=== PATIENT | female | born 1985 | race Hispanic/Latino ===

== ENCOUNTER 2018-08-09 13:44 | Emergency (ER) | payer OTHER ==
[2018-08-09 13:47] VITALS: BMI 33.9
[2018-08-09] MEDS ORDERED: Sodium Chloride 0.9% 1,000 ML IV ONE (13:56)
--- NOTE | 2018-08-09 14:08 | ED PDOC ---
Arrival/HPI - General Chief Complaint: Dizziness/Lightheaded Time Seen by Provider: 08/09/18 13:48 Historian: Patient - History of Present Illness Narrative History of Present Illness (Text): 08/09/18 13:56 A 32 year old female, with no significant past medical history, presents to the emergency department with a complaint of sore throat, right ear ache, diarrhea, and fatigue. Patient notes that she has not been feeling well since yesterday. 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 Patient states that she went to Dr. Leung's office this afternoon and had another near- syncopal episode in the office. She states that she was hyptoensive in the office and was transferred to the emergency department. Patient notes that her LNP was 2 months ago. She takes oral contraceptive pills and missed one. She states she does not think she is . The patient denies fevers, chills, headache, dizziness, chest pain, shortness of breath, dyspnea on exertion, cough, abdominal pain, nausea, vomiting, back pain, neck pain, urinary/bowel changes, or any other complaint. PMD: Dr. Leung Time/Duration: Other (Yesterday) Symptom Onset: Sudden Symptom Course: Unchanged Activities at Onset: Rest, Light Context: Home Past Medical History - Provider Review Nursing Documentation Reviewed: Yes - Infectious Disease Hx of Infectious Diseases: None - Gastrointestinal Other/Comment: Bariatric surgery - Psychiatric Hx Substance Use: No - Surgical History Other/Comment: gastric sleeve - Anesthesia Hx Anesthesia: Yes Hx Anesthesia Reactions: No Family/Social History - Physician Review Nursing Documentation Reviewed: Yes Family/Social History: No Known Family HX Smoking Status: Never Smoked Hx Alcohol Use: Yes Frequency of alcohol use: Socially Hx Substance Use: No Allergies/Home Meds Allergies/Adverse Reactions: Allergies shellfish derived Allergy (Verified 08/09/18 13:47) RASH Review of Systems - Physician Review All systems were reviewed & negative as marked: Yes - Review of Systems Constitutional: Fatigue. absent: Fevers ENT: Other (Right ear ache.) Respiratory: absent: SOB, Cough Cardiovascular: Syncope (2 near- syncopal episodes). absent: Chest Pain, MERLOS Gastrointestinal: Diarrhea. absent: Abdominal Pain, Stool Changes, Nausea, Vomiting Genitourinary Female: absent: Urine Output Changes Musculoskeletal: absent: Back Pain, Neck Pain Neurological: absent: Headache, Dizziness Physical Exam Appearance: Positive for: Well-Appearing, Non-Toxic, Comfortable Pain Distress: None Mental Status: Positive for: Alert and Oriented X 3 - Systems Exam Head: Present: Atraumatic, Normocephalic Pupils: Present: PERRL Extroacular Muscles: Present: EOMI Conjunctiva: Present: Normal Mouth: Present: Moist Mucous Membranes Neck: Present: Normal Range of Motion Respiratory/Chest: Present: Clear to Auscultation, Good Air Exchange. No: Respiratory Distress, Accessory Muscle Use Cardiovascular: Present: Regular Rate and Rhythm, Normal S1, S2. No: Murmurs Abdomen: No: Tenderness, Distention, Peritoneal Signs Back: Present: Normal Inspection Upper Extremity: Present: Normal Inspection. No: Cyanosis, Edema Lower Extremity: Present: Normal Inspection. No: Edema Neurological: Present: GCS=15, CN II-XII Intact, Speech Normal Skin: Present: Warm, Dry, Normal Color. No: Rashes Psychiatric: Present: Alert, Oriented x 3, Normal Insight, Normal Concentration Medical Decision Making ED Course and Treatment: 08/09/18 14:09 Impression: A 32 year old female presents to the emergency department with a complaint of sore throat, right ear ache, diarrhea, weakness, and fatigue since yesterday. Plan: -- EKG -- Chest X-ray -- Labs -- IV Fluids -- Reassess and disposition Prior Visits: Notes and results from previous visits were reviewed. Progress Notes: 08/09/18 15:56 EKG shows normal sinus rhythm rate approximately [address] or T-wave changes. 08/09/18 16:07 symptoms markedly improved post IV fluids. She does not feel dizzy or lightheaded or near syncopal. Workup is unremarkable other than her leukocytosis. Discharge home accompanied by father. Follow-up with PMD. Follow up in ER as needed. Symptomatic treatment. Increase fluids. - Lab Interpretations I have reviewed the lab results: Yes - EKG Interpretation Interpreted by ED Physician: Yes Type: 12 lead EKG - Scribe Statement The provider has reviewed the documentation as recorded by the Scribe Rita Orosco Provider Scribe Attestation: All medical record entries made by the Scribe were at my direction and personally dictated by me. I have reviewed the chart and agree that the record accurately reflects my personal performance of the history, physical exam, medical decision making, and the department course for this patient. I have also personally directed, reviewed, and agree with the discharge instructions and disposition. Disposition/Present on Arrival - Present on Arrival Any Indicators Present on Arrival: No History of DVT/PE: No History of Uncontrolled Diabetes: No Urinary Catheter: No History of Decub. Ulcer: No History Surgical Site Infection Following: None - Disposition Have Diagnosis and Disposition been Completed?: Yes Diagnosis: Near syncope, Leukocytosis, Hypotension, Pharyngitis Disposition: HOME/ ROUTINE Disposition Time: 16:10 Patient Plan: Discharge Condition: IMPROVED Discharge Instructions (ExitCare): Viral Pharyngitis, Sore Throat, Adult (DC), Syncope (Fainting) Additional Instructions: increase fluids. Symptomatic treatment. Tylenol or Advil as directed on bottle as needed. Follow-up with PMD. Follow up in ER as needed. Referrals: Javier Leung MD [Primary Care Provider] - Follow up with primary Forms: [facility] ([place]), WORK NOTE
[2018-08-09 14:10] VITALS: RESP 18; TEMP 98.2
[2018-08-09 14:32] LABS: BASO # 0.02 K/mm3 (0.0-2.0); BASO % 0.1 % (0.0-3.0); EOS % 0.1 % (1.5-5.0); GRAN # 15.88 (1.4-6.5); GRAN % 89.1 % (50.0-68.0); HEMOGLOBIN 13.2 g/dL (12.0-16.0); LYMPH # 1.1 (1.2-3.4); LYMPH % 6.2 % (22.0-35.0); MEAN CELL VOLUME 83.3 fl (80.0-105.0); MEAN CORPUSCULAR HGB CONC 33.6 g/dl (31.0-37.0); MEAN PLATELET VOLUME 9.1 fl (7.0-11.0); MONO # 0.8 (0.1-0.6); MONO % 4.5 % (1.0-6.0); RBC 4.72 10^6/uL (3.5-6.1); RED CELL DISTRIBUTION WIDTH 14.2 % (11.5-14.5); WHITE BLOOD COUNT 17.8 10^3/uL (4.5-11.0)
[2018-08-09 14:41] LABS: ALB/GLOB RATIO 1.1 (1.1-1.8); ALBUMIN 4.5 g/dL (3.0-4.8); ALT/SGPT 20 U/L (7-56); AST/SGOT 18 U/L (14-36); BLOOD UREA NITROGEN 10 mg/dL (7-21); CALCIUM 9.4 mg/dL (8.4-10.5); GFR NON-AFRICAN AMERICAN > 60
[2018-08-09 14:53] LABS: TROPONIN I < 0.01 ng/mL
[2018-08-09 15:39] VITALS: PULSE 93
[2018-08-09 16:28] VITALS: BP 128/78; O2SAT 98
--- NOTE | 2018-08-10 09:05 | CARD ---
APPROVED REPORT Date of service: 08/09/2018 EKG Measurement Heart [id number] <Conclusion> Normal sinus rhythm Low voltage lateral leads, posible lead placement
== END 2018-08-09 16:27 | disposition home or self-care (01) ==
LOC: ED 13:44
DX: R55 Syncope and collapse (principal); D72.829 Elevated white blood cell count, unspecified; J02.9 Acute pharyngitis, unspecified; I95.9 Hypotension, unspecified
CPT/HCPCS: 80053; 82550; 83615; 83735; 84484; 85025; 86710; 87070; 87430; 87804; 93005; 96360; 96361; 99285; J7040

== ENCOUNTER 2018-10-09 22:10 | Inpatient (IN) | payer OTHER ==
[2018-10-09] MEDS ORDERED: Morphine 4 mg/ml ISec IVP STA (23:08)
--- NOTE | 2018-10-09 23:10 | ED PDOC ---
Arrival/HPI - General Time Seen by Provider: 10/09/18 22:34 Historian: Patient - History of Present Illness Narrative History of Present Illness (Text): 10/09/18 23:06 32 year old female, whose past medical history includes bariatric surgery 3 years ago, presents to the emergency department with abdominal pain and vomiting, since tonight. Patient states she has been having sharp abdominal pain tonight. Patient state pain was so strong at one point, it made her collapse to the ground. Patient states pain moves around her entire abdomen. Patient states she has also been having some associated lightheadedness and chills. Patient denies any fevers, chest pain, shortness of breath, cough, back pain, neck pain, or any other complaint. Time/Duration: 4-6 hours Symptom Onset: Gradual Symptom Course: Unchanged Quality: Stabbing Activities at Onset: Light Context: Home Past Medical History - Provider Review Nursing Documentation Reviewed: Yes - Infectious Disease Hx of Infectious Diseases: None - Gastrointestinal Other/Comment: Bariatric surgery - Psychiatric Hx Substance Use: No - Surgical History Other/Comment: gastric sleeve - Anesthesia Hx Anesthesia: Yes Hx Anesthesia Reactions: No Family/Social History - Physician Review Nursing Documentation Reviewed: Yes Family/Social History: No Known Family HX Smoking Status: Never Smoked Hx Alcohol Use: Yes Hx Substance Use: No Allergies/Home Meds Allergies/Adverse Reactions: Allergies shellfish derived Allergy (Verified 10/09/18 23:32) RASH Home Medications: Home Meds Medication Instructions Recorded Confirmed Norethindrone-E.estradiol-Iron [Lo 1 tab PO DAILY 10/09/18 10/09/18 Loestrin Fe 1-10 Tablet] Sertraline [Zoloft] 25 mg PO HS 10/09/18 10/09/18 Review of Systems - Physician Review All systems were reviewed & negative as marked: Yes - Review of Systems Constitutional: absent: Fevers Respiratory: absent: SOB, Cough Cardiovascular: absent: Chest Pain Gastrointestinal: Abdominal Pain, Nausea, Vomiting Musculoskeletal: absent: Back Pain, Neck Pain Physical Exam - Physical Exam Narrative Physical Exam (Text): 10/09/18 23:16 Gen: VS reviewed, alert, well developed, well nourished, nontoxic, mild distress secondary to pain. ENT: normal pharynx. Eye: EOMI, PERRL. Neck: no JVD, supple, no adenopathy. CV: regular rate, regular rhythm, no rubs, no murmur, no gallops, S1, S2, pulses equal and strong. Pulm: no distress, clear to auscultation, no wheeze, no rhonchi, breath sounds equal, no rales. Abd: soft, mild to moderate epigastric tenderness with guarding, no rebound, no rigidity, normal bowel sounds. Ext: no edema. Skin: good color, no rash, no cyanosis. Psych: responds appropriately to questions, normal affect. Neuro: oriented x 3, CN2-12 intact grossly, motor intact, sensation intact. Vital Signs Reviewed: Yes Vital Signs Temp Pulse Resp BP Pulse Ox 10/09/18 22:36 97.5 F L 82 18 121/69 98 Temperature: Afebrile Blood Pressure: Normal Pulse: Regular Respiratory Rate: Normal Appearance: Positive for: Well-Appearing, Non-Toxic, Comfortable Pain Distress: None Mental Status: Positive for: Alert and Oriented X 3 Medical Decision Making ED Course and Treatment: 10/09/18 23:19 Impression: 32 year old female presents with vomiting and abdominal pain Plan: -- EKG -- CMP, Lipase, Trop -- CBC, Platelets -- Morphine, Zofran -- POC -- Reassess and disposition Prior Visits: Notes and results from previous visits were reviewed. Progress Notes: 10/10/18 01:03 patient comfortable at this time, awaiting US 10/10/18 03:[address] allison. patient to be admitted for gallstones and moderate leukocytosis. it is very likely that the patient will have a recurrence of severe pain especially since there are multiple gallstones seen on US. furthermore, with the mild transminitis, there is a concern for passed biliary duct stones. consult to gen surg as per dr. allison. patient has seen and examined by the surgical assist. 10/10/18 03:28 - RAD Interpretation Narrative RAD Interpretations (Text): 10/10/18 03:20 Ultrasound of the gallbladder Indication: Abdominal pain. Technique: Real-time ultrasound images were obtained. Findings: Enlarged liver measuring 18.1 cm. Increased hepatic echogenicity suggestive of hepatic steatosis. Multiple gallstones are noted with few of them at the level of the neck of the gallbladder. Normal gallbladder with thickness measuring 1.4 mm. Nondilated common bile duct measuring 6 mm. Unremarkable pancreas. Unremarkable IVC. Unremarkable right kidney. Impression: Cholelithiasis Twisting Frame Changer: Radiologist - EKG Interpretation EKG Interpretation (Text): 10/10/18 00:06 ekg my read" nsr at 70 bpm, nml qrs, nml axis, no acute sttw abn Interpreted by ED Physician: Yes - Scribe Statement The provider has reviewed the documentation as recorded by the Elvira Will Provider Scribe Attestation: All medical record entries made by the Christianibe were at my direction and pe rsonally dictated by me. I have reviewed the chart and agree that the record accurately reflects my personal performance of the history, physical exam, medical decision making, and the department course for this patient. I have also personally directed, reviewed, and agree with the discharge instructions and disposition. Disposition/Present on Arrival - Present on Arrival Any Indicators Present on Arrival: No History of DVT/PE: No History of Uncontrolled Diabetes: No Urinary Catheter: No History Surgical Site Infection Following: None - Disposition Have Diagnosis and Disposition been Completed?: Yes Diagnosis: Gallstones, Leukocytosis Disposition: HOSPITALIZED Disposition Time: 03:26 Patient Plan: Admission Patient Problems: Current Active Problems Problem Status Onset Gallstones Acute Leukocytosis Acute Condition: STABLE
[2018-10-09] MEDS ORDERED: Sodium Chloride 0.9% 1,000 ML IV SCH (23:15)
[2018-10-10 00:03] LABS: ALB/GLOB RATIO 1.1 (1.1-1.8); ALBUMIN 4.3 g/dL (3.0-4.8); ALT/SGPT 33 U/L (7-56); AST/SGOT 87 U/L (14-36); BLOOD UREA NITROGEN 14 mg/dL (7-21); CALCIUM 9.2 mg/dL (8.4-10.5); GFR NON-AFRICAN AMERICAN > 60; LIPASE 191 U/L (23-300)
[2018-10-10 00:13] LABS: BASO # 0.04 {null, K/mm3} (0.0-2.0); BASO % 0.3 % (0.0-3.0); EOS # 0.2 (0.0-0.7); EOS % 0.9 % (1.5-5.0); HEMOGLOBIN 13.2 g/dL (12.0-16.0); LYMPH # 3.1 (1.2-3.4); LYMPH % 19.6 % (22.0-35.0); MEAN CELL VOLUME 83.9 fl (80.0-105.0); MEAN CORPUSCULAR HEMOGLOBIN 27.7 pg (25.0-35.0); MEAN PLATELET VOLUME 9.6 fl (7.0-11.0); MONO # 0.7 (0.1-0.6); MONO % 4.5 % (1.0-6.0); RBC 4.77 {null, 10^6/uL} (3.5-6.1); RED CELL DISTRIBUTION WIDTH 14.1 % (11.5-14.5)
[2018-10-10 00:14] LABS: TROPONIN I < 0.01 ng/mL
[2018-10-10 00:16] LABS: INR 1.02; PARTIAL THROMBOPLASTIN TIME 32.7 Seconds (26.9-38.3); PROTHROMBIN TIME 11.3 SECONDS (9.4-12.5)
[2018-10-10] MEDS ORDERED: Dextrose 5%/0.45% NS 1,000 ML IV SCH (03:30)
[2018-10-10] MEDS ORDERED: Morphine 2 mg/ml ISec IVP STA (05:30)
[2018-10-10 05:39] VITALS: BMI 37.1
--- NOTE | 2018-10-10 07:48 | CP.PCM.HP ---
<José Manuel Cantrell - Last Filed: 10/10/18 10:07> History of Present Illness - History of Present Illness History of Present Illness: H&P for Dr Rodriguez: 32-year-old female with past medical history of sleeve bariatric surgery 3-4 years ago, GERD, and depression presents to the ED with abdominal pain. Patient states that at 10 PM last night she had a sudden onset abdominal pain that was 10/10 in severity and was severe enough that she fell from the pain. Patient denies hitting her head or any neck pain. Patient states that she also had nausea and an episode of nonbilious nonbloody vomiting. Patient states that the pain was in the epigastric region and radiated to her chest area. She denies this occurring before. She denies any other symptoms. Denies any fever, chills, shortness of breath, chest pain, palpitations, urinary symptoms or diarrhea. 12 point ROS performed and negative other than stated above PMH: As above PSH: Bariatric surgery 3-4 years ago Medications: Refer to [facility] Allergies: Shellfish Social history: Patient denies any smoking, alcohol use, recreational drug use Family history: Noncontributory Present on Admission - Present on Admission Any Indicators Present on Admission: No Review of Systems - Review of Systems All systems: reviewed and no additional remarkable complaints except Past Patient History - Infectious Disease Hx of Infectious Diseases: None - Past Social History Smoking Status: Never Smoked - CARDIAC Hx Cardiac Disorders: Yes (hypotension) - PULMONARY Hx Respiratory Disorders: Yes Hx Asthma: Yes Hx Pneumonia: Yes - NEUROLOGICAL Hx Neurological Disorder: Yes Hx Migraine: Yes - HEENT Hx HEENT Problems: No - RENAL Hx Chronic Kidney Disease: No - ENDOCRINE/METABOLIC Hx Endocrine Disorders: No - HEMATOLOGICAL/ONCOLOGICAL Hx Blood Disorders: Yes Hx Shingles: Yes (2013 arms) - INTEGUMENTARY Hx Dermatological Problems: Yes Hx Eczema: Yes - MUSCULOSKELETAL/RHEUMATOLOGICAL Hx Falls: No - GASTROINTESTINAL Hx Gastrointestinal Disorders: No - GENITOURINARY/GYNECOLOGICAL Hx Genitourinary Disorders: No - PSYCHIATRIC Hx Substance Use: No - SURGICAL HISTORY Hx Surgeries: Yes (gastric sleeve) - ANESTHESIA Hx Anesthesia: Yes Hx Anesthesia Reactions: No Meds Allergies/Adverse Reactions: Allergies Allergy/AdvReac Type Severity Reaction Status Date / Time shellfish derived Allergy RASH Verified 10/09/18 23:32 Physical Exam - Constitutional Appears: No Acute Distress - Head Exam Head Exam: ATRAUMATIC, NORMOCEPHALIC - Eye Exam Eye Exam: EOMI - ENT Exam ENT Exam: Mucous Membranes Moist - Respiratory Exam Respiratory Exam: Clear to Auscultation Bilateral. absent: Rales, Wheezes - Cardiovascular Exam Cardiovascular Exam: REGULAR RHYTHM, RRR, +S1, +S2 - GI/Abdominal Exam GI & Abdominal Exam: Normal Bowel Sounds, Soft, Tenderness (Tender in epigastric region, + murpheys ). absent: Distended, Guarding - Neurological Exam Neurological exam: Alert, CN II-XII Intact, Oriented x3 - Psychiatric Exam Psychiatric exam: Normal Mood - Skin Skin Exam: Dry, Warm Results - Vital Signs Recent Vital Signs: Last Vital Signs Temp 97.5 F L 10/09/18 22:36 Pulse 82 10/09/18 22:36 Resp 19 10/10/18 05:32 BP 121/69 10/09/18 22:36 Pulse Ox 98 10/09/18 22:36 - Labs Result Diagrams: 10/09/18 23:40 10/09/18 23:40 Labs: Laboratory Results - last 24 hr 10/09/18 10/09/18 10/09/18 23:40 23:40 23:40 WBC 16.0 H RBC 4.77 Hgb 13.2 Hct 40.0 MCV 83.9 MCH 27.7 MCHC 33.0 RDW 14.1 Plt Count 345 MPV 9.6 Neut % (Auto) 74.7 H Lymph % (Auto) 19.6 L [place] % (Auto) 4.5 Eos % (Auto) 0.9 L Baso % (Auto) 0.3 Lymph # (Auto) 3.1 [place] # (Auto) 0.7 H Eos # (Auto) 0.2 Baso # (Auto) 0.04 Absolute Neuts (auto) 11.95 H PT 11.3 INR 1.02 APTT 32.7 Sodium 139 Potassium 4.1 Chloride 106 Carbon Dioxide 26 Anion Gap 11 BUN 14 Creatinine 0.7 Est GFR ( Amer) > 60 Est GFR (Non-Af Amer) > 60 Random Glucose 121 H Calcium 9.2 Total Bilirubin 0.3 AST 87 H D ALT 33 Alkaline Phosphatase 121 Troponin I < 0.01 Total Protein 8.1 Albumin 4.3 Globulin 3.8 Albumin/Globulin Ratio 1.1 Lipase 191 Assessment & Plan - Assessment and Plan (Free Text) Assessment: 1. Abdominal pain likely secondary to cholelithiasis, with hx of bariatric surgery 2. Leukocytosis 3. GERD 4. Depression At this time patient states that her abdominal pain has mildly improved. S noah is consulted for their recommendations. Abdominal ultrasound is ordered preliminary reading cholelithiasis, will follow up official read. Gastroenterology was consulted awaiting recommendations - for a possible MRCP. For the patient's leukocytosis Rocephin was started. Continue with Protonix for her GERD, and continue with Lexapro for her depression. Pain control with morphine 2mg/4hr as needed. Follow-up septic workup. We will continue to monitor for any changes. Case and plan was reviewed and discussed with Dr. Rodriguez. <Walt Rodriguez S - Last Filed: 10/10/18 18:39> Results - Vital Signs Recent Vital Signs: Last Vital Signs Temp 101.3 F H 10/10/18 17:57 Pulse 65 10/10/18 17:57 Resp 19 10/10/18 17:57 BP 122/82 10/10/18 17:57 Pulse Ox 96 10/10/18 17:57 - Labs Result Diagrams: 10/09/18 23:40 10/09/18 23:40 Labs: Laboratory Results - last 24 hr 10/09/18 10/09/18 10/09/18 23:40 23:40 23:40 WBC 16.0 H RBC 4.77 Hgb 13.2 Hct 40.0 MCV 83.9 MCH 27.7 MCHC 33.0 RDW 14.1 Plt Count 345 MPV 9.6 Neut % (Auto) 74.7 H Lymph % (Auto) 19.6 L [place] % (Auto) 4.5 Eos % (Auto) 0.9 L Baso % (Auto) 0.3 Lymph # (Auto) 3.1 [place] # (Auto) 0.7 H Eos # (Auto) 0.2 Baso # (Auto) 0.04 Absolute Neuts (auto) 11.95 H PT 11.3 INR 1.02 APTT 32.7 Sodium 139 Potassium 4.1 Chloride 106 Carbon Dioxide 26 Anion Gap 11 BUN 14 Creatinine 0.7 Est GFR ( Amer) > 60 Est GFR (Non-Af Amer) > 60 Random Glucose 121 H Calcium 9.2 Total Bilirubin 0.3 AST 87 H D ALT 33 Alkaline Phosphatase 121 Troponin I < 0.01 Total Protein 8.1 Albumin 4.3 Globulin 3.8 Albumin/Globulin Ratio 1.1 Lipase 191 Assessment & Plan - Assessment and Plan (Free Text) Assessment: Pt seen and examined by me. I have reviewed the note of the medical coder and I agree with it. I have discussed the assessment and plan with the resident. I have reviewed the medications and the last labs. Pt with abd pain due to cholecystitis. She has been started on IV Rocephin. She will need surgical evaluation. Her pain is controlled with Morphine. She will need GI evaluation. She has depression and will be on her anti-depressant. She has a 16 month child at home and is eager to go home. Follow CBC.
--- NOTE | 2018-10-10 08:02 | CP.PCM.CON ---
History of Present Illness - History of Present Illness History of Present Illness: Surgery Consult Note for Dr. Hutchinson 32-year-old female with past medical history of sleeve bariatric surgery 3-4 years ago, GERD, and depression presents to the ED with abdominal pain. Pain started last night described as a 10/10, sudden onset and intense in nature that he it caused her to collapse. Admits to 1 episode of nonbilious vomiting and stated it looked like her food contents. Patient states the pain is located in the epigastric region and radiates to the back. Never had prior episodes of this before. Denies fevers, chills, chest pain, sob, n/v, constipation or diarrhea, and dysuria. PMH: Gerd, Depression PSH: Bariatric surgery 3-4 years ago Medications: Refer to [facility] Allergies: Shellfish Social history: Patient denies any smoking, alcohol use, recreational drug use Family history: Noncontributory Review of Systems - Review of Systems Review of Systems: 12 point ROS obtained and noted in HPI Past Patient History - Infectious Disease Hx of Infectious Diseases: None - Past Social History Smoking Status: Never Smoked - CARDIAC Hx Cardiac Disorders: Yes (hypotension) - PULMONARY Hx Respiratory Disorders: Yes Hx Asthma: Yes Hx Pneumonia: Yes - NEUROLOGICAL Hx Neurological Disorder: Yes Hx Migraine: Yes - HEENT Hx HEENT Problems: No - RENAL Hx Chronic Kidney Disease: No - ENDOCRINE/METABOLIC Hx Endocrine Disorders: No - HEMATOLOGICAL/ONCOLOGICAL Hx Blood Disorders: Yes Hx Shingles: Yes (2013 arms) - INTEGUMENTARY Hx Dermatological Problems: Yes Hx Eczema: Yes - MUSCULOSKELETAL/RHEUMATOLOGICAL Hx Falls: No - GASTROINTESTINAL Hx Gastrointestinal Disorders: No - GENITOURINARY/GYNECOLOGICAL Hx Genitourinary Disorders: No - PSYCHIATRIC Hx Substance Use: No - SURGICAL HISTORY Hx Surgeries: Yes (gastric sleeve) - ANESTHESIA Hx Anesthesia: Yes Hx Anesthesia Reactions: No Meds Allergies/Adverse Reactions: Allergies Allergy/AdvReac Type Severity Reaction Status Date / Time shellfish derived Allergy RASH Verified 10/09/18 23:32 - Medications Medications: Current Medications Dextrose/Sodium Chloride (Dextrose 5%/0.45% Ns 1000 Ml) 1,000 mls @ 150 mls/hr IV .[id number] [facility] Last Admin: 10/10/18 03:39 Dose: 150 mls/hr Pantoprazole Sodium (Protonix Ec Tab) 40 mg PO 0600 STACIE Sertraline HCl (Zoloft) 25 mg PO HS STACIE Results - Vital Signs Recent Vital Signs: Last Vital Signs Temp 97.5 F L 10/09/18 22:36 Pulse 82 10/09/18 22:36 Resp 19 10/10/18 05:32 BP 121/69 10/09/18 22:36 Pulse Ox 98 10/09/18 22:36 - Labs Result Diagrams: 10/09/18 23:40 10/09/18 23:40 Labs: Laboratory Results - last 24 hr 10/09/18 10/09/18 10/09/18 23:40 23:40 23:40 WBC 16.0 H RBC 4.77 Hgb 13.2 Hct 40.0 MCV 83.9 MCH 27.7 MCHC 33.0 RDW 14.1 Plt Count 345 MPV 9.6 Neut % (Auto) 74.7 H Lymph % (Auto) 19.6 L [place] % (Auto) 4.5 Eos % (Auto) 0.9 L Baso % (Auto) 0.3 Lymph # (Auto) 3.1 [place] # (Auto) 0.7 H Eos # (Auto) 0.2 Baso # (Auto) 0.04 Absolute Neuts (auto) 11.95 H PT 11.3 INR 1.02 APTT 32.7 Sodium 139 Potassium 4.1 Chloride 106 Carbon Dioxide 26 Anion Gap 11 BUN 14 Creatinine 0.7 Est GFR ( Amer) > 60 Est GFR (Non-Af Amer) > 60 Random Glucose 121 H Calcium 9.2 Total Bilirubin 0.3 AST 87 H D ALT 33 Alkaline Phosphatase 121 Troponin I < 0.01 Total Protein 8.1 Albumin 4.3 Globulin 3.8 Albumin/Globulin Ratio 1.1 Lipase 191 Assessment & Plan - Assessment and Plan (Free Text) Assessment: Patient is a 32 yo female admitted for abdominal pain Plan: Gallbladder ultrasound- No cholecystitis, but cholelithiasis HIDA pending MRCP in AM Pending imaging results, will make determination if surgery is warranted Continue pain control and nausea control Continue Protonix Further recommendations as per Dr. Hutchinson PGY-1 Huy Novak
--- NOTE | 2018-10-10 09:52 | RAD ---
Date of service: 10/10/2018 HISTORY: Upright chest for epigastric pain COMPARISON: No prior. FINDINGS: LUNGS: No active pulmonary disease. PLEURA: No significant pleural effusion identified, no pneumothorax apparent. CARDIOVASCULAR: No aortic atherosclerotic calcification present. Normal cardiac size. No pulmonary vascular congestion. OSSEOUS STRUCTURES: No significant abnormalities. VISUALIZED UPPER ABDOMEN: Normal. OTHER FINDINGS: None. IMPRESSION: No active disease.
--- NOTE | 2018-10-10 10:07 | US ---
Date of service: 10/10/2018 HISTORY: pain, ?gallstones COMPARISON: None. TECHNIQUE: Sonographic evaluation of the right upper quadrant of the abdomen. FINDINGS: LIVER: Measures 18.1 cm in length. Diffusely increased echogenicity of the liver parenchyma. Consistent with fatty infiltration. Smooth contour. No mass. No intrahepatic biliary ductal dilatation. GALLBLADDER: Cholelithiasis. No mural thickening. No pericholecystic fluid. Negative sonographic Srivastava sign. COMMON BILE DUCT: Measures 6 mm. No stones. No dilatation. PANCREAS: Unremarkable as visualized. No mass. No ductal dilatation. RIGHT KIDNEY: Measures 11.2 cm in length. Normal echogenicity. No calculus, mass, or hydronephrosis. AORTA: No aneurysmal dilatation. IVC: Unremarkable. OTHER FINDINGS: None . IMPRESSION: Cholelithiasis without evidence of cholecystitis. Minimal hepatomegaly with fatty infiltration of the liver. No additional abnormality. The preliminary findings for this examination were reported by [facility] at 3:14 a.m. on 10/10/2018. There is concurrence of this report with the preliminary findings.
[2018-10-10] MEDS: cefTRIAXone 1 gm 1 GM/100 ML BAG IVPB SCH (11:19)
--- NOTE | 2018-10-10 12:21 | CP.PCM.CON ---
<Matthias Palacios - Last Filed: 10/10/18 12:28> History of Present Illness - History of Present Illness History of Present Illness: PGY5 GI Initial Consult Note Rosa Sherman is a 32F w/ history of sleeve bariatric surgery 3-4 years ago, GERD, and depression presents to the ED with abdominal pain. She states that it was sudden onset and located in the epigastrum and RUQ. Pt states that it peaked at 8 out of 10 and came to the ER for further evaluation. She denies any alleviating or aggravating factors. Patient states that she also had nausea and an episode of nonbilious nonbloody vomiting. Denies any fever, chills, shortness of breath, chest pain, palpitations, urinary symptoms or diarrhea. Denies any previous episodes and notes still having gallbladder. Initial labs in the ED revealed mildly elevated AST and cholelithiasis on US. Pt was also found to have a 6mm CBD. Denies any scleral icturus or juandice 12 point ROS performed and negative other than stated above PMH: As above PSH: Bariatric surgery 3-4 years ago Medications: Refer to [facility] Allergies: Shellfish Social history: Patient denies any smoking, alcohol use, recreational drug use Family history: Denies any GI related malignancies Endo Hx: EGD prior to gastric sleeve ROS: 12 point ROS coonducted, neg other than above Past Patient History - Infectious Disease Hx of Infectious Diseases: None - Past Social History Smoking Status: Never Smoked - CARDIAC Hx Cardiac Disorders: Yes (hypotension) - PULMONARY Hx Respiratory Disorders: Yes Hx Asthma: Yes Hx Pneumonia: Yes - NEUROLOGICAL Hx Neurological Disorder: Yes Hx Migraine: Yes - HEENT Hx HEENT Problems: No - RENAL Hx Chronic Kidney Disease: No - ENDOCRINE/METABOLIC Hx Endocrine Disorders: No - HEMATOLOGICAL/ONCOLOGICAL Hx Blood Disorders: Yes Hx Shingles: Yes (2013 arms) - INTEGUMENTARY Hx Dermatological Problems: Yes Hx Eczema: Yes - MUSCULOSKELETAL/RHEUMATOLOGICAL Hx Falls: No - GASTROINTESTINAL Hx Gastrointestinal Disorders: No - GENITOURINARY/GYNECOLOGICAL Hx Genitourinary Disorders: No - PSYCHIATRIC Hx Substance Use: No - SURGICAL HISTORY Hx Surgeries: Yes (gastric sleeve) - ANESTHESIA Hx Anesthesia: Yes Hx Anesthesia Reactions: No Meds Allergies/Adverse Reactions: Allergies Allergy/AdvReac Type Severity Reaction Status Date / Time shellfish derived Allergy RASH Verified 10/09/18 23:32 - Medications Medications: Current Medications Ceftriaxone Sodium (Rocephin 1 Gram Ivpb) 1 gm in 100 mls @ 100 mls/hr IVPB DAILY [facility]; Protocol Last Admin: 10/10/18 11:19 Dose: 100 mls/hr Dextrose/Sodium Chloride (Dextrose 5%/0.45% Ns 1000 Ml) 1,000 mls @ 75 mls/hr IV .[id number] [facility] Morphine Sulfate (Morphine) 2 mg IVP Q4H PRN PRN Reason: Pain, severe (8-10) Pantoprazole Sodium (Protonix Ec Tab) 40 mg PO 0600 [facility] Sertraline HCl (Zoloft) 25 mg PO HS [facility] Physical Exam - Constitutional Appears: Well, No Acute Distress - Head Exam Head Exam: ATRAUMATIC, NORMOCEPHALIC - Eye Exam Eye Exam: Normal appearance - ENT Exam ENT Exam: Mucous Membranes Moist, Normal Exam - Neck Exam Neck exam: Positive for: Normal Inspection - Respiratory Exam Respiratory Exam: Clear to Auscultation Bilateral, NORMAL BREATHING PATTERN. absent: Rales, Rhonchi, Wheezes, Respiratory Distress - Cardiovascular Exam Cardiovascular Exam: REGULAR RHYTHM, +S1, +S2 - GI/Abdominal Exam GI & Abdominal Exam: Normal Bowel Sounds, Soft, Tenderness (epigastrum). absent: Diminished Bowel Sounds, Distended, Firm, Guarding, Hernia, Organome elmer, Rebound, Rigid - Extremities Exam Extremities exam: Negative for: joint swelling, pedal edema - Back Exam Back exam: NORMAL INSPECTION - Neurological Exam Neurological exam: Alert, Oriented x3 - Psychiatric Exam Psychiatric exam: Normal Affect, Normal Mood - Skin Skin Exam: Dry, Intact, Normal Color, Warm Results - Vital Signs Recent Vital Signs: Last Vital Signs Temp 97.5 F L 10/09/18 22:36 Pulse 82 10/09/18 22:36 Resp 19 10/10/18 05:32 BP 121/69 10/09/18 22:36 Pulse Ox 98 10/09/18 22:36 - Labs Result Diagrams: 10/09/18 23:40 10/09/18 23:40 Labs: Laboratory Results - last 24 hr 10/09/18 10/09/18 10/09/18 23:40 23:40 23:40 WBC 16.0 H RBC 4.77 Hgb 13.2 Hct 40.0 MCV 83.9 MCH 27.7 MCHC 33.0 RDW 14.1 Plt Count 345 MPV 9.6 Neut % (Auto) 74.7 H Lymph % (Auto) 19.6 L Evangeline % (Auto) 4.5 Eos % (Auto) 0.9 L Baso % (Auto) 0.3 Lymph # (Auto) 3.1 Evangeline # (Auto) 0.7 H Eos # (Auto) 0.2 Baso # (Auto) 0.04 Absolute Neuts (auto) 11.95 H PT 11.3 INR 1.02 APTT 32.7 Sodium 139 Potassium 4.1 Chloride 106 Carbon Dioxide 26 Anion Gap 11 BUN 14 Creatinine 0.7 Est GFR ( Amer) > 60 Est GFR (Non-Af Amer) > 60 Random Glucose 121 H Calcium 9.2 Total Bilirubin 0.3 AST 87 H D ALT 33 Alkaline Phosphatase 121 Troponin I < 0.01 Total Protein 8.1 Albumin 4.3 Globulin 3.8 Albumin/Globulin Ratio 1.1 Lipase 191 Assessment & Plan - Assessment and Plan (Free Text) Assessment: Rosa Sherman is a 32F w/ history of sleeve bariatric surgery 3-4 years ago, GERD, and depression presents to the ED with abdominal pain. Abd pain etiology unclear; DDx: biliary vs PUD, gastric sleeve complication hx of of gastric sleeve GERD Depression Plan: -U/S reviewed -recommend MRCP and MRI and HIDA -keep NPO -will decide on endoscopic procedure based on imaging findings -U/S does not discuss portal vein flow, may need to be evaluated if other etiology is neg; increased complication risk of PVT in setting of gastric sleeve -continue protonic 40mg daily -after imgaing, can start full liquid diet, if okay with surgery -surgery on board D/W Dr. Wiley <Mook Wiley V - Last Filed: 10/10/18 23:18> Meds - Medications Medications: Current Medications Acetaminophen (Tylenol 325mg Tab) 650 mg PO Q6H PRN PRN Reason: Fever >100.4 F Ceftriaxone Sodium (Rocephin 1 Gram Ivpb) 1 gm in 100 mls @ 100 mls/hr IVPB DAILY [facility]; Protocol Last Admin: 10/10/18 11:19 Dose: 100 mls/hr Dextrose/Sodium Chloride (Dextrose 5%/0.45% Ns 1000 Ml) 1,000 mls @ 75 mls/hr IV .[id number] [facility] Last Admin: 10/10/18 21:33 Dose: 75 mls/hr Morphine Sulfate (Morphine) 2 mg IVP Q4H PRN PRN Reason: Pain, severe (8-10) Last Admin: 10/10/18 19:58 Dose: 2 mg Pantoprazole Sodium (Protonix Ec Tab) 40 mg PO 0600 [facility] Sertraline HCl (Zoloft) 25 mg PO HS [facility] Last Admin: 10/10/18 21:33 Dose: 25 mg Results - Vital Signs Recent Vital Signs: Last Vital Signs Temp 101.3 F H 10/10/18 17:57 Pulse 65 10/10/18 17:57 Resp 19 10/10/18 17:57 BP 122/82 10/10/18 17:57 Pulse Ox 96 10/10/18 17:57 - Labs Result Diagrams: 10/09/18 23:40 10/09/18 23:40 Labs: Laboratory Results - last 24 hr 10/09/18 10/09/18 10/09/18 23:40 23:40 23:40 WBC 16.0 H RBC 4.77 Hgb 13.2 Hct 40.0 MCV 83.9 MCH 27.7 MCHC 33.0 RDW 14.1 Plt Count 345 MPV 9.6 Neut % (Auto) 74.7 H Lymph % (Auto) 19.6 L Evangeline % (Auto) 4.5 Eos % (Auto) 0.9 L Baso % (Auto) 0.3 Lymph # (Auto) 3.1 Evangeline # (Auto) 0.7 H Eos # (Auto) 0.2 Baso # (Auto) 0.04 Absolute Neuts (auto) 11.95 H PT 11.3 INR 1.02 APTT 32.7 Sodium 139 Potassium 4.1 Chloride 106 Carbon Dioxide 26 Anion Gap 11 BUN 14 Creatinine 0.7 Est GFR ( Amer) > 60 Est GFR (Non-Af Amer) > 60 Random Glucose 121 H Calcium 9.2 Total Bilirubin 0.3 AST 87 H D ALT 33 Alkaline Phosphatase 121 Troponin I < 0.01 Total Protein 8.1 Albumin 4.3 Globulin 3.8 Albumin/Globulin Ratio 1.1 Lipase 191 Attending/Attestation - Attestation I have personally seen and examined this patient.: Yes I have fully participated in the care of the patient.: Yes I have reviewed all pertinent clinical information: Yes Notes (Text): This is an addendum to GI consult report dictated by the GI Fellow.The patient was seen and examined earlier. Medical records, lab studies, imagings were reviewed. Last 24 hours events reviewed. Agreed with the above treatment plan as outlined in GI Fellow 's notes with the addition of the following 10/10/18 23:18
[2018-10-10] MEDS: Morphine 2 mg/ml ISec IVP PRN ×2 (16:05→19:58)
[2018-10-10] MEDS ORDERED: Gadodiamide 287 MG/ML VIAL (20ML) IV ONE (17:36)
--- NOTE | 2018-10-10 17:44 | NM ---
Date of service: 10/10/2018 PROCEDURE: Nuclear Medicine Hepatobiliary Scan HISTORY: biliary colic, r/o CBD stone COMPARISON: October 10, 2018 gallbladder ultrasound TECHNIQUE: 5.4 mCi of technetium 99m Mebrofenin was administered intravenously. Planar images of the abdomen were obtained at 5 min intervals to 60 mins. Delayed images were also obtained. FINDINGS: LIVER: Timely and homogenous uptake. COMMON BILE DUCT: identified at 15 mins. GALLBLADDER: identified at 15 mins. SMALL BOWEL: Identified at 60 mins. IMPRESSION: Normal Hepatobiliary Scan. The cystic duct is patent. So it is looks like the gallbladder okay he is good to go she has good ago thanks a lot
[2018-10-10] MEDS: Dextrose 5%/0.45% NS 1,000 ML IV SCH ×2 (19:13→21:33)
--- NOTE | 2018-10-10 22:51 | CARD ---
APPROVED REPORT Date of service: 10/09/2018 EKG Measurement Heart [id number] <Conclusion> Normal sinus rhythm Normal ECG
[2018-10-11] MEDS: Morphine 2 mg/ml ISec IVP PRN ×4 (03:26→20:15)
[2018-10-11] MEDS: Pantoprazole 40 mg EC Tab PO SCH (06:31)
[2018-10-11 06:46] LABS: BASO # 0.03 {null, K/mm3} (0.0-2.0); BASO % 0.3 % (0.0-3.0); EOS # 0.2 (0.0-0.7); EOS % 2.5 % (1.5-5.0); HEMOGLOBIN 12.2 g/dL (12.0-16.0); LYMPH # 2.3 (1.2-3.4); LYMPH % 26.2 % (22.0-35.0); MEAN CELL VOLUME 84.3 fl (80.0-105.0); MEAN PLATELET VOLUME 9.4 fl (7.0-11.0); MONO # 0.4 (0.1-0.6); MONO % 4.4 % (1.0-6.0); RBC 4.52 {null, 10^6/uL} (3.5-6.1); RED CELL DISTRIBUTION WIDTH 14.3 % (11.5-14.5); WHITE BLOOD COUNT 8.9 {null, 10^3/uL} (4.5-11.0)
[2018-10-11 07:16] LABS: ALB/GLOB RATIO 1.1 (1.1-1.8); ALBUMIN 3.9 g/dL (3.0-4.8); ALT/SGPT 46 U/L (7-56); AST/SGOT 37 U/L (14-36); BLOOD UREA NITROGEN 8 mg/dL (7-21); CALCIUM 9.2 mg/dL (8.4-10.5); GFR NON-AFRICAN AMERICAN > 60
[2018-10-11] MEDS: cefTRIAXone 1 gm 1 GM/100 ML BAG IVPB SCH (09:38)
--- NOTE | 2018-10-11 09:55 | CP.PCM.PN ---
<José Manuel Cantrell - Last Filed: 10/11/18 16:18> Subjective - Date & Time of Evaluation Date of Evaluation: 10/11/18 Time of Evaluation: 07:40 - Subjective Subjective: Medicine progress note for Dr Rodriguez: P seen and examined at bedside. No acute events overnight. Patient still complains of abd pain no n/v. No fevers. 12 Point ROS performed and neg other than stated above Objective - Vital Signs/Intake and Output Vital Signs (last 24 hours): Temp Pulse Resp BP Pulse Ox 98 F 60 20 117/70 96 10/11/18 08:08 10/11/18 08:08 10/11/18 08:08 10/11/18 08:08 10/11/18 08:08 Intake and Output: 10/11/18 10/11/18 06:59 18:59 Intake Total 120 Output Total 400 Balance -280 - Medications Medications: Current Medications Acetaminophen (Tylenol 325mg Tab) 650 mg PO Q6H PRN PRN Reason: Fever >100.4 F Ceftriaxone Sodium (Rocephin 1 Gram Ivpb) 1 gm in 100 mls @ 100 mls/hr IVPB DAILY [facility]; Protocol Last Admin: 10/11/18 09:38 Dose: 100 mls/hr Dextrose/Sodium Chloride (Dextrose 5%/0.45% Ns 1000 Ml) 1,000 mls @ 75 mls/hr IV .[id number] [facility] Last Admin: 10/10/18 21:33 Dose: 75 mls/hr Morphine Sulfate (Morphine) 2 mg IVP Q4H PRN PRN Reason: Pain, severe (8-10) Last Admin: 10/11/18 03:26 Dose: 2 mg Pantoprazole Sodium (Protonix Ec Tab) 40 mg PO 0600 [facility] Last Admin: 10/11/18 06:31 Dose: 40 mg Sertraline HCl (Zoloft) 25 mg PO HS [facility] Last Admin: 10/10/18 21:33 Dose: 25 mg - Labs Labs: 10/11/18 06:00 10/11/18 06:00 PT 11.3 SECONDS (9.4-12.5) 10/09/18 23:40 INR 1.02 10/09/18 23:40 APTT 32.7 Seconds (26.9-38.3) 10/09/18 23:40 - Constitutional Appears: No Acute Distress - Head Exam Head Exam: ATRAUMATIC, NORMOCEPHALIC - Eye Exam Eye Exam: EOMI, PERRL - ENT Exam ENT Exam: Mucous Membranes Moist - Respiratory Exam Respiratory Exam: Clear to Ausculation Bilateral. absent: Rales, Rhonchi, Wheezes - Cardiovascular Exam Cardiovascular Exam: REGULAR RHYTHM, RRR, +S1, +S2 - GI/Abdominal Exam GI & Abdominal Exam: Soft, Tenderness (mild RUQ tenderness, no gaurding ), Normal Bowel Sounds. absent: Distended, Guarding - Neurological Exam Neurological Exam: Alert, Awake, Oriented x3 - Psychiatric Exam Psychiatric exam: Normal Mood - Skin Skin Exam: Dry, Normal Color, Warm Assessment and Plan - Assessment and Plan (Free Text) Assessment: 1. Abdominal pain likely secondary to cholelithiasis, with hx of bariatric surgery 2. Leukocytosis- resolved 3. GERD 4. Depression Patient still with abd pain. Surgery is consulted for their recommendations. Abdominal ultrasound shows cholelithiasis. HIDA scan was neg. MRCP showed 4mm stone with no CBD dilation. Gastroenterology was consulted awaiting further recommendations. For the patient's leukocytosis cont Rocephin. Continue with Protonix for her GERD, and continue with Lexapro for her depression. Pain control with morphine 2mg/4hr as needed. Follow-up septic workup. We will co ntinue to monitor for any changes. Case and plan was reviewed and discussed with Dr. Rodriguez. <Walt Rodriguez S - Last Filed: 10/11/18 18:53> Objective - Vital Signs/Intake and Output Vital Signs (last 24 hours): Temp Pulse Resp BP Pulse Ox 98.1 F 61 20 110/71 95 10/11/18 17:18 10/11/18 17:18 10/11/18 17:18 10/11/18 17:18 10/11/18 17:18 Intake and Output: 10/11/18 10/11/18 06:59 18:59 Intake Total 120 Output Total 400 Balance -280 - Medications Medications: Current Medications Acetaminophen (Tylenol 325mg Tab) 650 mg PO Q6H PRN PRN Reason: Fever >100.4 F Ceftriaxone Sodium (Rocephin 1 Gram Ivpb) 1 gm in 100 mls @ 100 mls/hr IVPB DAILY [facility]; Protocol Last Admin: 10/11/18 09:38 Dose: 100 mls/hr Dextrose/Sodium Chloride (Dextrose 5%/0.45% Ns 1000 Ml) 1,000 mls @ 75 mls/hr IV .[id number] [facility] Last Admin: 10/10/18 21:33 Dose: 75 mls/hr Morphine Sulfate (Morphine) 2 mg IVP Q4H PRN PRN Reason: Pain, severe (8-10) Last Admin: 10/11/18 15:03 Dose: 2 mg Pantoprazole Sodium (Protonix Ec Tab) 40 mg PO 0600 [facility] Last Admin: 10/11/18 06:31 Dose: 40 mg Sertraline HCl (Zoloft) 25 mg PO HS [facility] Last Admin: 10/10/18 21:33 Dose: 25 mg - Labs Labs: 10/11/18 06:00 10/11/18 06:00 PT 11.3 SECONDS (9.4-12.5) 10/09/18 23:40 INR 1.02 10/09/18 23:40 APTT 32.7 Seconds (26.9-38.3) 10/09/18 23:40 Assessment and Plan - Assessment and Plan (Free Text) Assessment: Pt seen and examined by me. I have reviewed the note of the medical asst and I agree with it. I have discussed the assessment and plan with the resident. I have reviewed the medications and the last labs. Pt with HIDA negative. She has a MRCP chelsey showed small stone in the CBD. She has choledocholithiasis. She will need ERCP prior to surgery. I will speak to GI about planning on the ERCP. She is on Rocephin for her cholecystitis. She is on Zoloft for her depression. She is not on Lexapro as per the medical asst note. She had pain overnight and was given Morphine. I did explain the diagnosis and plan of care to the pt.
--- NOTE | 2018-10-11 10:33 | MRI ---
Date of service: 10/10/2018 PROCEDURE: MRI Abdomen with and without contrast with MRCP HISTORY: Evaluate for CBD stone COMPARISON: None available. TECHNIQUE: Multisequence, multiplanar MR images of the abdomen with and without gadolinium contrast enhancement. 20 cc of Omniscan FINDINGS: LIVER: Unremarkable. There are no enhancing lesions GALLBLADDER: Multiple gallstones are seen layered in the gallbladder. There is a 4 mm stone in the common bile duct. The common duct is not dilated. This is seen on multiple images. SPLEEN: Unremarkable. PANCREAS: Unremarkable. ADRENALS: Unremarkable. KIDNEYS: Unremarkable. AORTA: No aneurysm. ASCITES: None. PERITONEUM: Unremarkable. LYMPH NODES: Unremarkable. OTHER FINDINGS: The report concurs with the preliminary [facility] report IMPRESSION: Multiple gallstones are seen layered in the gallbladder. There is a 4 mm stone in the common bile duct. The common duct is not dilated. This is seen on multiple images.
--- NOTE | 2018-10-11 11:32 | CP.PCM.PN ---
Subjective - Date & Time of Evaluation Date of Evaluation: 10/11/18 Time of Evaluation: 11:25 - Subjective Subjective: Surgery Progress Note for Dr. Santiago (covering for Jasper) S/E at bedside. Continues to have discomfort upon eating food. Continues to have nausea. MRCP done but read pending. Denies fevers, chills, chest pain, sob, n/v, constipation or diarrhea, and dysuria. Objective - Vital Signs/Intake and Output Vital Signs (last 24 hours): Temp Pulse Resp BP Pulse Ox 98 F 60 20 117/70 96 10/11/18 08:08 10/11/18 08:08 10/11/18 08:08 10/11/18 08:08 10/11/18 08:08 Intake and Output: 10/11/18 10/11/18 06:59 18:59 Intake Total 120 Output Total 400 Balance -280 - Medications Medications: Current Medications Acetaminophen (Tylenol 325mg Tab) 650 mg PO Q6H PRN PRN Reason: Fever >100.4 F Ceftriaxone Sodium (Rocephin 1 Gram Ivpb) 1 gm in 100 mls @ 100 mls/hr IVPB DAILY [facility]; Protocol Last Admin: 10/11/18 09:38 Dose: 100 mls/hr Dextrose/Sodium Chloride (Dextrose 5%/0.45% Ns 1000 Ml) 1,000 mls @ 75 mls/hr IV .[id number] [facility] Last Admin: 10/10/18 21:33 Dose: 75 mls/hr Morphine Sulfate (Morphine) 2 mg IVP Q4H PRN PRN Reason: Pain, severe (8-10) Last Admin: 10/11/18 09:59 Dose: 2 mg Pantoprazole Sodium (Protonix Ec Tab) 40 mg PO 0600 [facility] Last Admin: 10/11/18 06:31 Dose: 40 mg Sertraline HCl (Zoloft) 25 mg PO HS [facility] Last Admin: 10/10/18 21:33 Dose: 25 mg - Labs Labs: 10/11/18 06:00 10/11/18 06:00 PT 11.3 SECONDS (9.4-12.5) 10/09/18 23:40 INR 1.02 10/09/18 23:40 APTT 32.7 Seconds (26.9-38.3) 10/09/18 23:40 - Constitutional Appears: Non-toxic, No Acute Distress - Head Exam Head Exam: NORMAL INSPECTION, NORMOCEPHALIC - Eye Exam Eye Exam: EOMI, Normal appearance. absent: Nystagmus, Scleral icterus - ENT Exam ENT Exam: Mucous Membranes Moist - Respiratory Exam Respiratory Exam: Clear to Ausculation Bilateral, NORMAL BREATHING PATTERN. absent: Rales, Rhonchi, Wheezes - Cardiovascular Exam Cardiovascular Exam: REGULAR RHYTHM, +S1, +S2. absent: Tachycardia - GI/Abdominal Exam GI & Abdominal Exam: Soft, Normal Bowel Sounds. absent: Distended, Firm, Guarding, Rigid, Tenderness - Extremities Exam Extremities Exam: Normal Inspection. absent: Calf Tenderness, Pedal Edema - Neurological Exam Neurological Exam: Alert, Awake, Oriented x3 - Psychiatric Exam Psychiatric exam: Normal Affect, Normal Mood - Skin Skin Exam: Dry, Intact, Normal Color Assessment and Plan - Assessment and Plan (Free Text) Assessment: Patient is a 32 yo female admitted for abdominal pain, gastritis vs cholelithiasis Plan: Gallbladder ultrasound- No cholecystitis, but cholelithiasis HIDA- normal hepatobiliary scan MRCP- multiple gallstones in gallbladder, 4mm stone in CBD, CBD not dilated F/U GI recs; possible cholecystectomy on Tuesday Continue pain control and nausea control Continue Protonix Further recommendations as per Dr. Baker (covering for Jasper) PGY-1 Huy Novak
[2018-10-11] MEDS: Lactated Ringer's 1,000 ML IV SCH (18:43)
--- NOTE | 2018-10-11 22:01 | CP.PCM.PN ---
<Matthias Palacios - Last Filed: 10/11/18 22:02> Subjective - Date & Time of Evaluation Date of Evaluation: 10/11/18 Time of Evaluation: 08:00 - Subjective Subjective: PGY5 GI Follow-up Pt seen and examined bedside Still has RUQ pain Denies any fever, chills or diaphoresis ROS: 12 point ROS conducted, neg other than above Objective - Vital Signs/Intake and Output Vital Signs (last 24 hours): Temp Pulse Resp BP Pulse Ox 98.1 F 61 20 110/71 95 10/11/18 17:18 10/11/18 17:18 10/11/18 17:18 10/11/18 17:18 10/11/18 17:18 - Medications Medications: Current Medications Acetaminophen (Tylenol 325mg Tab) 650 mg PO Q6H PRN PRN Reason: Fever >100.4 F Ceftriaxone Sodium (Rocephin 1 Gram Ivpb) 1 gm in 100 mls @ 100 mls/hr IVPB DAILY [facility]; Protocol Last Admin: 10/11/18 09:38 Dose: 100 mls/hr Lactated Ringer's (Lactated Ringer's) 1,000 mls @ 50 mls/hr IV .Q20H [facility] Stop: 10/13/18 10:29 Last Admin: 10/11/18 18:43 Dose: 50 mls/hr Morphine Sulfate (Morphine) 2 mg IVP Q4H PRN PRN Reason: Pain, severe (8-10) Last Admin: 10/11/18 20:15 Dose: 2 mg Pantoprazole Sodium (Protonix Ec Tab) 40 mg PO 0600 [facility] Last Admin: 10/11/18 06:31 Dose: 40 mg Sertraline HCl (Zoloft) 25 mg PO HS [facility] Last Admin: 10/11/18 21:37 Dose: 25 mg - Labs Labs: 10/11/18 06:00 10/11/18 06:00 PT 11.3 SECONDS (9.4-12.5) 10/09/18 23:40 INR 1.02 10/09/18 23:40 APTT 32.7 Seconds (26.9-38.3) 10/09/18 23:40 - Constitutional Appears: Well, No Acute Distress - Head Exam Head Exam: ATRAUMATIC, NORMOCEPHALIC - Eye Exam Eye Exam: Normal appearance - ENT Exam ENT Exam: Mucous Membranes Moist, Normal Exam - Neck Exam Neck Exam: Normal Inspection - Respiratory Exam Respiratory Exam: Clear to Ausculation Bilateral, NORMAL BREATHING PATTERN. a bsent: Rales, Rhonchi, Wheezes, Respiratory Distress - Cardiovascular Exam Cardiovascular Exam: REGULAR RHYTHM, +S1, +S2 - GI/Abdominal Exam GI & Abdominal Exam: Soft, Tenderness (RUQ), Normal Bowel Sounds. absent: Distended, Firm, Guarding, Rigid, Organomegaly, Pulsatile Mass, Rebound - Extremities Exam Extremities Exam: absent: Joint Swelling, Pedal Edema - Neurological Exam Neurological Exam: Alert, Awake, Oriented x3 - Psychiatric Exam Psychiatric exam: Normal Affect, Normal Mood - Skin Skin Exam: Dry, Intact, Normal Color, Warm Assessment and Plan - Assessment and Plan (Free Text) Assessment: Rosa Sherman is a 32F w/ history of sleeve bariatric surgery 3-4 years ago, GERD, and depression presents to the ED with abdominal pain. Abd pain etiology likley biliary CBD stone hx of of gastric sleeve GERD Depression Plan: -ERCP reviewed with Dr. Wiley CBD stone present -plan for ERCP tomorrow -NPO after midnight -clears for now -spoke with surgery, plan for lap angélica afterwards on Tue -risk and benefits explained to the pt and pt verbalized understanding = D/W Dr. Wiley <Mook Wiley V - Last Filed: 10/11/18 23:49> Objective - Vital Signs/Intake and Output Vital Signs (last 24 hours): Temp Pulse Resp BP Pulse Ox 98.1 F 61 20 110/71 95 10/11/18 17:18 10/11/18 17:18 10/11/18 17:18 10/11/18 17:18 10/11/18 17:18 - Medications Medications: Current Medications Acetaminophen (Tylenol 325mg Tab) 650 mg PO Q6H PRN PRN Reason: Fever >100.4 F Ceftriaxone Sodium (Rocephin 1 Gram Ivpb) 1 gm in 100 mls @ 100 mls/hr IVPB DAILY [facility]; Protocol Last Admin: 10/11/18 09:38 Dose: 100 mls/hr Lactated Ringer's (Lactated Ringer's) 1,000 mls @ 50 mls/hr IV .Q20H [facility] Stop: 10/13/18 10:29 Last Admin: 10/11/18 18:43 Dose: 50 mls/hr Morphine Sulfate (Morphine) 2 mg IVP Q4H PRN PRN Reason: Pain, severe (8-10) Last Admin: 10/11/18 20:15 Dose: 2 mg Pantoprazole Sodium (Protonix Ec Tab) 40 mg PO 0600 [facility] Last Admin: 10/11/18 06:31 Dose: 40 mg Sertraline HCl (Zoloft) 25 mg PO HS [facility] Last Admin: 10/11/18 21:37 Dose: 25 mg - Labs Labs: 10/11/18 06:00 10/11/18 06:00 PT 11.3 SECONDS (9.4-12.5) 10/09/18 23:40 INR 1.02 10/09/18 23:40 APTT 32.7 Seconds (26.9-38.3) 10/09/18 23:40 Attending/Attestation - Attestation I have personally seen and examined this patient.: Yes I have fully participated in the care of the patient.: Yes I have reviewed all pertinent clinical information, including history, physical exam and plan: Yes Notes (Text): This is an addendum to GI progress report dictated by the GI Fellow.The patient was seen and examined earlier. Medical records, lab studies, imagings were reviewed. Last 24 hours events reviewed. Agreed with the above treatment plan as outlined in GI Fellow 's notes with the addition of the following 10/11/18 23:49
[2018-10-12] MEDS: Pantoprazole 40 mg EC Tab PO SCH (05:27)
[2018-10-12 06:37] LABS: BASO # 0.03 {null, K/mm3} (0.0-2.0); BASO % 0.4 % (0.0-3.0); EOS # 0.3 (0.0-0.7); EOS % 3.8 % (1.5-5.0); HEMOGLOBIN 12.4 g/dL (12.0-16.0); LYMPH % 40.4 % (22.0-35.0); MEAN CELL VOLUME 83.8 fl (80.0-105.0); MEAN CORPUSCULAR HEMOGLOBIN 27.1 pg (25.0-35.0); MEAN CORPUSCULAR HGB CONC 32.4 g/dl (31.0-37.0); MEAN PLATELET VOLUME 9.2 fl (7.0-11.0); MONO # 0.5 (0.1-0.6); MONO % 6.7 % (1.0-6.0); RBC 4.57 {null, 10^6/uL} (3.5-6.1); WHITE BLOOD COUNT 7.4 {null, 10^3/uL} (4.5-11.0)
[2018-10-12 07:12] LABS: ALB/GLOB RATIO 1.1 (1.1-1.8); ALBUMIN 4.1 g/dL (3.0-4.8); ALT/SGPT 29 U/L (7-56); AST/SGOT 38 U/L (14-36); BLOOD UREA NITROGEN 8 mg/dL (7-21); CALCIUM 8.8 mg/dL (8.4-10.5); GFR NON-AFRICAN AMERICAN > 60
[2018-10-12] MEDS ORDERED: Indomethacin 50 MG Suppository PR ONE (07:50)
[2018-10-12] MEDS ORDERED: Iohexol 240 (50 ml) ONE (07:50)
--- NOTE | 2018-10-12 08:01 | CP.PCM.PN ---
Subjective - Date & Time of Evaluation Date of Evaluation: 10/12/18 Time of Evaluation: 07:00 - Subjective Subjective: Reggie Jha, PGY-1 Surgery Progress Note for Dr. Lopez (covering for Dr. Hutchinson) Patient seen and evaluated at bedside. Continues to have minor discomfort upon eating food, associated with nausea. 4 mm stone found in nondilated CBD during MRCP yesterday. Denies fevers, chills, chest pain, shortness of breath, constipation or diarrhea, and dysuria. Objective - Vital Signs/Intake and Output Vital Signs (last 24 hours): Temp Pulse Resp BP Pulse Ox 98.1 F 61 20 110/71 95 10/11/18 17:18 10/11/18 17:18 10/11/18 17:18 10/11/18 17:18 10/11/18 17:18 - Medications Medications: Current Medications Acetaminophen (Tylenol 325mg Tab) 650 mg PO Q6H PRN PRN Reason: Fever >100.4 F Ceftriaxone Sodium (Rocephin 1 Gram Ivpb) 1 gm in 100 mls @ 100 mls/hr IVPB DAILY [facility]; Protocol Last Admin: 10/11/18 09:38 Dose: 100 mls/hr Lactated Ringer's (Lactated Ringer's) 1,000 mls @ 50 mls/hr IV .Q20H [facility] Stop: 10/13/18 10:29 Last Admin: 10/11/18 18:43 Dose: 50 mls/hr Morphine Sulfate (Morphine) 2 mg IVP Q4H PRN PRN Reason: Pain, severe (8-10) Last Admin: 10/11/18 20:15 Dose: 2 mg Pantoprazole Sodium (Protonix Ec Tab) 40 mg PO 0600 [facility] Last Admin: 10/12/18 05:27 Dose: Not Given Sertraline HCl (Zoloft) 25 mg PO HS [facility] Last Admin: 10/11/18 21:37 Dose: 25 mg - Labs Labs: 10/12/18 06:00 10/12/18 06:00 PT 11.3 SECONDS (9.4-12.5) 10/09/18 23:40 INR 1.02 10/09/18 23:40 APTT 32.7 Seconds (26.9-38.3) 10/09/18 23:40 - Additional Findings Additional findings: - Constitutional Appears: Non-toxic, No Acute Distress - Head Exam Head Exam: NORMAL INSPECTION, NORMOCEPHALIC - Eye Exam Eye Exam: EOMI, Normal appearance. absent: Nystagmus, Scleral icterus - ENT Exam ENT Exam: Mucous Membranes Moist - Respiratory Exam Respiratory Exam: Clear to Ausculation Bilateral, NORMAL BREATHING PATTERN. absent: Rales, Rhonchi, Wheezes - Cardiovascular Exam Cardiovascular Exam: REGULAR RHYTHM, +S1, +S2. absent: Tachycardia - GI/Abdominal Exam GI & Abdominal Exam: Soft, Normal Bowel Sounds. absent: Distended, Firm, Guarding, Rigid, Tenderness - Extremities Exam Extremities Exam: Normal Inspection. absent: Calf Tenderness, Pedal Edema - Neurological Exam Neurological Exam: Alert, Awake, Oriented x3 - Psychiatric Exam Psychiatric exam: Normal Affect, Normal Mood - Skin Skin Exam: Dry, Intact, Normal Color Assessment and Plan - Assessment and Plan (Free Text) Assessment: Patient is a 32 y/o female admitted for abdominal pain, likely 2/2 cholelithiasis. Plan for ERCP to be performed today. Plan: - HIDA- normal hepatobiliary scan - MRCP- multiple gallstones in gallbladder, 4mm stone in CBD, CBD not dilated - F/u ERCP results - F/U GI recs - Lap cholecystectomy planned for tomorrow - Continue pain control and nausea control - Continue Protonix Further recommendations as per Dr. Lopez (covering for Jasper) Reggie Jha, PGY-1
[2018-10-12] MEDS ORDERED: Propofol 10 mg/ml Inj (20 ML) ONE (09:16)
[2018-10-12] MEDS ORDERED: Succinylcholine 200 mg/10 ml Inj IV ONE (09:16)
[2018-10-12] MEDS ORDERED: Midazolam 2 MG/2 ML VIAL ONE (09:16)
[2018-10-12] MEDS ORDERED: Esmolol 100 mg/10ml Inj IV ONE (09:28)
[2018-10-12] MEDS ORDERED: cefTRIAXone (Rocephin) 1 gm Inj IVPB ONE (09:30)
[2018-10-12] MEDS ORDERED: ePHEDrine 50 mg/ml Inj ONE (10:04)
[2018-10-12] MEDS ORDERED: Sodium Chloride 0.9% 1,000 ML IV SCH (10:45)
[2018-10-12] MEDS ORDERED: HYDROmorphone 0.5 mg/0.5 ml ISec IVP PRN ×2 (10:50→10:54)
--- NOTE | 2018-10-12 12:14 | CP.PCM.PN ---
<José Manuel Cantrell - Last Filed: 10/12/18 12:14> Subjective - Date & Time of Evaluation Date of Evaluation: 10/12/18 Time of Evaluation: 07:10 - Subjective Subjective: Medicine progress note for Dr Rodriguez: P seen and examined at bedside. No acute events overnight. Patient is complaining of abdominal pain however denies any nausea or vomiting. No fevers overnight. N.p.o. for ERCP today. 12 Point ROS performed and neg other than stated above Objective - Vital Signs/Intake and Output Vital Signs (last 24 hours): Temp Pulse Resp BP Pulse Ox 98.8 F 72 15 121/74 97 10/12/18 11:41 10/12/18 11:41 10/12/18 11:41 10/12/18 11:41 10/12/18 11:41 - Medications Medications: Current Medications Acetaminophen (Tylenol 325mg Tab) 650 mg PO Q6H PRN PRN Reason: Fever >100.4 F Hydromorphone HCl (Dilaudid) 0.5 mg IVP Q15M PRN PRN Reason: Pain, Moderate/Severe (4-10) Ceftriaxone Sodium (Rocephin 1 Gram Ivpb) 1 gm in 100 mls @ 100 mls/hr IVPB DAILY [facility]; Protocol Last Admin: 10/11/18 09:38 Dose: 100 mls/hr Lactated Ringer's (Lactated Ringer's) 1,000 mls @ 50 mls/hr IV .Q20H [facility] Stop: 10/13/18 10:29 Last Admin: 10/11/18 18:43 Dose: 50 mls/hr Sodium Chloride (Sodium Chloride 0.9%) 1,000 mls @ 75 mls/hr IV .[id number] [facility] Stop: 10/12/18 12:46 Metoclopramide HCl (Reglan) 10 mg IV ONCE PRN PRN Reason: Nausea/Vomiting Morphine Sulfate (Morphine) 2 mg IVP Q4H PRN PRN Reason: Pain, severe (8-10) Last Admin: 10/11/18 20:15 Dose: 2 mg Ondansetron HCl (Zofran Inj) 4 mg IVP ONCE PRN PRN Reason: Nausea/Vomiting Pantoprazole Sodium (Protonix Ec Tab) 40 mg PO 0600 [facility] Last Admin: 10/12/18 05:27 Dose: Not Given Sertraline HCl (Zoloft) 25 mg PO HS [facility] Last Admin: 10/11/18 21:37 Dose: 25 mg - Labs Labs: 10/12/18 06:00 10/12/18 06:00 PT 11.3 SECONDS (9.4-12.5) 10/09/18 23:40 INR 1.02 10/09/18 23:40 APTT 32.7 Seconds (26.9-38.3) 10/09/18 23:40 - Constitutional Appears: No Acute Distress - Head Exam Head Exam: ATRAUMATIC, NORMOCEPHALIC - Eye Exam Eye Exam: EOMI, PERRL - Respiratory Exam Respiratory Exam: Clear to Ausculation Bilateral. absent: Rales, Rhonchi, Wheezes - Cardiovascular Exam Cardiovascular Exam: REGULAR RHYTHM, +S1, +S2 - Extremities Exam Extremities Exam: absent: Calf Tenderness, Pedal Edema - Neurological Exam Neurological Exam: Alert, Awake, Oriented x3 - Psychiatric Exam Psychiatric exam: Normal Mood - Skin Skin Exam: Dry, Warm Assessment and Plan - Assessment and Plan (Free Text) Assessment: 1. Abdominal pain likely secondary to cholelithiasis, with hx of bariatric surgery 2. Leukocytosis- resolved 3. GERD 4. Depression Patient is n.p.o. for ERCP today. Surgery is consulted for their recommendations - Plan for cholecystectomy tomorrow. Abdominal ultrasound shows cholelithiasis. HIDA scan was neg. MRCP showed 4mm stone with no CBD dilation. Gastroenterology was consulted awaiting further recommendations. Continue with Rocephin. Continue with Protonix for her GERD, and continue with Lexapro for her depression. Pain control with morphine 2mg/4hr as needed. Follow-up septic workup thus far neg. We will continue to monitor for any changes. Case and plan was reviewed and discussed with Dr. Rodriguez. <Walt Rodriguez - Last Filed: 10/13/18 19:24> Objective - Vital Signs/Intake and Output Vital Signs (last 24 hours): Temp Pulse Resp BP Pulse Ox 98.1 F 92 H 12 149/73 96 10/13/18 09:44 10/13/18 10:44 10/13/18 10:44 10/13/18 10:44 10/13/18 10:44 Intake and Output: 02/22/19 02/23/19 18:59 06:59 Intake Total 0 Balance 0 - Medications Medications: Current Medications Acetaminophen (Tylenol 325mg Tab) 650 mg PO Q6H PRN PRN Reason: Fever >100.4 F Metoclopramide HCl (Reglan) 10 mg IV ONCE PRN PRN Reason: Nausea/Vomiting Morphine Sulfate (Morphine) 2 mg IVP Q4H PRN PRN Reason: Pain, severe (8-10) Last Admin: 10/13/18 17:06 Dose: 2 mg Ondansetron HCl (Zofran Inj) 4 mg IVP ONCE PRN PRN Reason: Nausea/Vomiting Ondansetron HCl (Zofran Inj) 4 mg IVP ONCE PRN PRN Reason: Nausea/Vomiting Pantoprazole Sodium (Protonix Ec Tab) 40 mg PO 0600 [facility] Last Admin: 10/13/18 05:10 Dose: Not Given Sertraline HCl (Zoloft) 25 mg PO HS [facility] Last Admin: 10/12/18 22:32 Dose: 25 mg - Labs Labs: 10/13/18 06:10 10/13/18 06:10 PT 13.7 SECONDS (9.4-12.5) H 10/13/18 06:10 INR 1.21 10/13/18 06:10 APTT 29.9 Seconds (26.9-38.3) 10/13/18 06:10 Assessment and Plan - Assessment and Plan (Free Text) Assessment: Pt seen and examined by me. This is a late entry.I have reviewed the note of the medical voucher clerk and I agree with it. I have discussed the assessment and plan with the resident. I have reviewed the medications and the last labs. Pt with a bd pain due to cholecystitis. She will be placed on IV Abx. She will need an MRCP and a HIDA. Surgical and GI evaluation will be needed. She is going to be on Zoloft for her Depression.
--- NOTE | 2018-10-12 14:04 | RAD ---
Date of service: 10/12/2018 PROCEDURE: ERCP HISTORY: stones COMPARISON: TECHNIQUE: 384.3 sec of fluoro time. Cumulative dose 133.08 mGy. Five images submitted. FINDINGS: Filling defects are seen in the common duct consistent with stones. Multiple stones are seen filling the gallbladder. IMPRESSION: As above
[2018-10-12] MEDS: Lactated Ringer's 1,000 ML IV SCH (23:35)
[2018-10-13] MEDS: Pantoprazole 40 mg EC Tab PO SCH (05:10)
[2018-10-13 06:30] LABS: BASO # 0.02 {null, K/mm3} (0.0-2.0); BASO % 0.2 % (0.0-3.0); EOS # 0.2 (0.0-0.7); EOS % 2.8 % (1.5-5.0); HEMOGLOBIN 12.2 g/dL (12.0-16.0); LYMPH # 2.9 (1.2-3.4); MEAN CELL VOLUME 82.5 fl (80.0-105.0); MEAN CORPUSCULAR HEMOGLOBIN 27.4 pg (25.0-35.0); MEAN CORPUSCULAR HGB CONC 33.2 g/dl (31.0-37.0); MEAN PLATELET VOLUME 9.4 fl (7.0-11.0); MONO # 0.4 (0.1-0.6); MONO % 5.4 % (1.0-6.0); RBC 4.46 {null, 10^6/uL} (3.5-6.1); RED CELL DISTRIBUTION WIDTH 13.8 % (11.5-14.5); WHITE BLOOD COUNT 8.1 {null, 10^3/uL} (4.5-11.0)
[2018-10-13 06:46] LABS: INR 1.21; PARTIAL THROMBOPLASTIN TIME 29.9 Seconds (26.9-38.3); PROTHROMBIN TIME 13.7 SECONDS (9.4-12.5)
[2018-10-13 07:20] LABS: ALB/GLOB RATIO 1.1 (1.1-1.8); ALBUMIN 3.9 g/dL (3.0-4.8); ALT/SGPT 28 U/L (7-56); AST/SGOT 28 U/L (14-36); BLOOD UREA NITROGEN 7 mg/dL (7-21); CALCIUM 9.1 mg/dL (8.4-10.5); GFR NON-AFRICAN AMERICAN > 60
[2018-10-13] MEDS ORDERED: Bupivacaine 0.5% 50 ML IJ ONE ×3 (07:34→08:36)
[2018-10-13] MEDS ORDERED: Iohexol 240 (50 ml) ONE (07:35)
[2018-10-13] MEDS ORDERED: Propofol 10 mg/ml Inj (20 ML) ONE (07:52)
[2018-10-13] MEDS ORDERED: Midazolam 2 MG/2 ML VIAL ONE (07:53)
[2018-10-13] MEDS ORDERED: Succinylcholine 200 mg/10 ml Inj IV ONE (07:54)
[2018-10-13] MEDS ORDERED: Rocuronium 10 mg/ml (5 ml) ONE ×2 (07:54→08:27)
[2018-10-13] MEDS ORDERED: CeFAZolin 1 gm in NS 100ml IVPB ONE (08:10)
--- NOTE | 2018-10-13 08:45 | CP.PCM.PN ---
<José Manuel Cantrell - Last Filed: 10/13/18 14:37> Subjective - Date & Time of Evaluation Date of Evaluation: 10/13/18 Time of Evaluation: 07:20 - Subjective Subjective: Medicine progress note for Dr Rodriguez: Pt was seen and examined at bedside. No acute events overnight. C/o mild abdominal pain. No nausea or vomiting. No fevers overnight. N.p.o. for lap angélica today. 12 Point ROS performed and neg other than stated above Objective - Vital Signs/Intake and Output Vital Signs (last 24 hours): Temp Pulse Resp BP Pulse Ox 98.3 F 78 18 134/60 97 10/13/18 07:29 10/13/18 07:29 10/13/18 07:29 10/13/18 07:29 10/13/18 07:29 Intake and Output: 10/13/18 10/13/18 06:59 18:59 Intake Total 1180 Balance 1180 - Medications Medications: Current Medications Acetaminophen (Tylenol 325mg Tab) 650 mg PO Q6H PRN PRN Reason: Fever >100.4 F Hydromorphone HCl (Dilaudid) 0.5 mg IVP Q15M PRN PRN Reason: Pain, Moderate/Severe (4-10) Ceftriaxone Sodium (Rocephin 1 Gram Ivpb) 1 gm in 100 mls @ 100 mls/hr IVPB DAILY [facility]; Protocol Last Admin: 10/11/18 09:38 Dose: 100 mls/hr Lactated Ringer's (Lactated Ringer's) 1,000 mls @ 50 mls/hr IV .Q20H [facility] Stop: 10/13/18 10:29 Last Admin: 10/12/18 23:35 Dose: 50 mls/hr Metoclopramide HCl (Reglan) 10 mg IV ONCE PRN PRN Reason: Nausea/Vomiting Morphine Sulfate (Morphine) 2 mg IVP Q4H PRN PRN Reason: Pain, severe (8-10) Last Admin: 10/11/18 20:15 Dose: 2 mg Ondansetron HCl (Zofran Inj) 4 mg IVP ONCE PRN PRN Reason: Nausea/Vomiting Pantoprazole Sodium (Protonix Ec Tab) 40 mg PO 0600 [facility] Last Admin: 10/13/18 05:10 Dose: Not Given Sertraline HCl (Zoloft) 25 mg PO HS [facility] Last Admin: 10/12/18 22:32 Dose: 25 mg - Labs Labs: 10/13/18 06:10 10/13/18 06:10 PT 13.7 SECONDS (9.4-12.5) H 10/13/18 06:10 INR 1.21 10/13/18 06:10 APTT 29.9 Seconds (26.9-38.3) 10/13/18 06:10 - Constitutional Appears: No Acute Distress - Head Exam Head Exam: ATRAUMATIC, NORMOCEPHALIC - Eye Exam Eye Exam: EOMI - ENT Exam ENT Exam: Mucous Membranes Moist - Respiratory Exam Respiratory Exam: Clear to Ausculation Bilateral. absent: Wheezes - Cardiovascular Exam Cardiovascular Exam: REGULAR RHYTHM, +S1, +S2 - GI/Abdominal Exam GI & Abdominal Exam: Soft. absent: Distended, Tenderness - Extremities Exam Extremities Exam: absent: Calf Tenderness, Pedal Edema - Neurological Exam Neurological Exam: Alert, Awake, Oriented x3 - Psychiatric Exam Psychiatric exam: Normal Mood - Skin Skin Exam: Dry, Warm Assessment and Plan - Assessment and Plan (Free Text) Assessment: 1. Abdominal pain likely secondary to cholelithiasis, with hx of bariatric surgery 2. Leukocytosis- resolved 3. GERD 4. Depression ERCP showed filling defect in the common duct consistent with stone, sphinc terotomy with balloon sweep performed. Surgery is consulted for their recommendations - Plan for cholecystectomy today. Abdominal ultrasound shows cholelithiasis. HIDA scan was neg. MRCP showed 4mm stone with no CBD dilation. Gastroenterology was consulted awaiting further recommendations. Continue with Rocephin. Continue with Protonix for her GERD, and continue with Lexapro for her depression. Pain control with morphine 2mg/4hr as needed. Follow-up septic workup thus far neg. We will continue to monitor for any changes. Case and plan was reviewed and discussed with Dr. Rodriguez. <Walt Rodriguez - Last Filed: 10/13/18 16:07> Objective - Vital Signs/Intake and Output Vital Signs (last 24 hours): Temp Pulse Resp BP Pulse Ox 98.1 F 92 H 12 149/73 96 10/13/18 09:44 10/13/18 10:44 10/13/18 10:44 10/13/18 10:44 10/13/18 10:44 Intake and Output: 10/13/18 10/13/18 06:59 18:59 Intake Total 1180 0 Balance 1180 0 - Medications Medications: Current Medications Acetaminophen (Tylenol 325mg Tab) 650 mg PO Q6H PRN PRN Reason: Fever >100.4 F Metoclopramide HCl (Reglan) 10 mg IV ONCE PRN PRN Reason: Nausea/Vomiting Morphine Sulfate (Morphine) 2 mg IVP Q4H PRN PRN Reason: Pain, severe (8-10) Last Admin: 10/13/18 12:52 Dose: 2 mg Ondansetron HCl (Zofran Inj) 4 mg IVP ONCE PRN PRN Reason: Nausea/Vomiting Ondansetron HCl (Zofran Inj) 4 mg IVP ONCE PRN PRN Reason: Nausea/Vomiting Pantoprazole Sodium (Protonix Ec Tab) 40 mg PO 0600 [facility] Last Admin: 10/13/18 05:10 Dose: Not Given Sertraline HCl (Zoloft) 25 mg PO HS [facility] Last Admin: 10/12/18 22:32 Dose: 25 mg - Labs Labs: 10/13/18 06:10 10/13/18 06:10 PT 13.7 SECONDS (9.4-12.5) H 10/13/18 06:10 INR 1.21 10/13/18 06:10 APTT 29.9 Seconds (26.9-38.3) 10/13/18 06:10 Assessment and Plan - Assessment and Plan (Free Text) Assessment: I have reviewed the note of the medical records director and I agree with it. I have discussed the assessment and plan with the resident. I have reviewed the medications and the last labs. Pt had ERCP yesterday. I spoke to Dr Fernandez. She is going for cholecystectomy. She has pain controlled on Morphine. Spoke to surgery this morning. BCx negative.
[2018-10-13] MEDS ORDERED: Neostigmine Methylsulfate 3mg/3ml Syringe IV ONE (09:20)
[2018-10-13] MEDS: HYDROmorphone 1 mg/ml ISec IVP PRN ×3 (09:54→10:14)
[2018-10-13] MEDS ORDERED: HYDROmorphone 1 mg/ml ISec ONE ×2 (09:58→10:18)
[2018-10-13] MEDS ORDERED: Lactated Ringer's 1,000 ML IV SCH (10:00)
[2018-10-13 10:07] VITALS: TEMP 98.1
[2018-10-13] MEDS: Morphine 2 mg/ml ISec IVP PRN ×3 (12:52→21:17)
[2018-10-13] MEDS: cefTRIAXone 1 gm 1 GM/100 ML BAG IVPB SCH (12:53)
--- NOTE | 2018-10-13 14:07 | CP.PCM.PN ---
<Matthias Palacios - Last Filed: 10/13/18 14:08> Subjective - Date & Time of Evaluation Date of Evaluation: 10/13/18 Time of Evaluation: 07:00 - Subjective Subjective: PGY5 GI Follow-up PT seen and examined bedside in the AM Denies any abd pain, nause and vomiting NPO since last night for surgery ROS: 12 point ROS conducted, neg other than above Objective - Vital Signs/Intake and Output Vital Signs (last 24 hours): Temp Pulse Resp BP Pulse Ox 98.1 F 92 H 12 149/73 96 10/13/18 09:44 10/13/18 10:44 10/13/18 10:44 10/13/18 10:44 10/13/18 10:44 Intake and Output: 10/13/18 10/13/18 06:59 18:59 Intake Total 1180 0 Balance 1180 0 - Medications Medications: Current Medications Acetaminophen (Tylenol 325mg Tab) 650 mg PO Q6H PRN PRN Reason: Fever >100.4 F Metoclopramide HCl (Reglan) 10 mg IV ONCE PRN PRN Reason: Nausea/Vomiting Morphine Sulfate (Morphine) 2 mg IVP Q4H PRN PRN Reason: Pain, severe (8-10) Last Admin: 10/13/18 12:52 Dose: 2 mg Ondansetron HCl (Zofran Inj) 4 mg IVP ONCE PRN PRN Reason: Nausea/Vomiting Ondansetron HCl (Zofran Inj) 4 mg IVP ONCE PRN PRN Reason: Nausea/Vomiting Pantoprazole Sodium (Protonix Ec Tab) 40 mg PO 0600 [facility] Last Admin: 10/13/18 05:10 Dose: Not Given Sertraline HCl (Zoloft) 25 mg PO HS [facility] Last Admin: 10/12/18 22:32 Dose: 25 mg - Labs Labs: 10/13/18 06:10 10/13/18 06:10 PT 13.7 SECONDS (9.4-12.5) H 10/13/18 06:10 INR 1.21 10/13/18 06:10 APTT 29.9 Seconds (26.9-38.3) 10/13/18 06:10 - Constitutional Appears: Well, No Acute Distress - Head Exam Head Exam: ATRAUMATIC, NORMOCEPHALIC - Eye Exam Eye Exam: Normal appearance - ENT Exam ENT Exam: Mucous Membranes Moist, Normal Exam - Neck Exam Neck Exam: Normal Inspection - Respiratory Exam Respiratory Exam: Clear to Ausculation Bilateral, NORMAL BREATHING PATTERN. absent: Rales, Rhonchi, Wheezes, Respiratory Distress - Cardiovascular Exam Cardiovascular Exam: REGULAR RHYTHM, +S1, +S2 - GI/Abdominal Exam GI & Abdominal Exam: Soft, Normal Bowel Sounds. absent: Distended, Firm, Guardi ng, Rigid, Tenderness, Organomegaly, Pulsatile Mass, Rebound - Extremities Exam Extremities Exam: absent: Joint Swelling, Pedal Edema - Neurological Exam Neurological Exam: Alert, Awake, Oriented x3 - Psychiatric Exam Psychiatric exam: Normal Affect, Normal Mood - Skin Skin Exam: Dry, Intact, Normal Color, Warm Assessment and Plan - Assessment and Plan (Free Text) Assessment: Rosa Sherman is a 32F w/ history of sleeve bariatric surgery 3-4 years ago, GERD, and depression presents to the ED with abdominal pain. POD #1 s/p ercp and stone extraction Abd pain etiology likley biliary CBD stone, s/p ERCP hx of of gastric sleeve GERD Depression Plan: -no abd pain -no additional procedure planned -NPO for lap angélica today D/W Dr. Wiley <Mook Wiley V - Last Filed: 10/13/18 23:46> Objective - Vital Signs/Intake and Output Vital Signs (last 24 hours): Temp Pulse Resp BP Pulse Ox 98.1 F 92 H 12 149/73 96 10/13/18 09:44 10/13/18 10:44 10/13/18 10:44 10/13/18 10:44 10/13/18 10:44 Intake and Output: 10/13/18 10/14/18 18:59 06:59 Intake Total 0 360 Balance 0 360 - Medications Medications: Current Medications Acetaminophen (Tylenol 325mg Tab) 650 mg PO Q6H PRN PRN Reason: Fever >100.4 F Metoclopramide HCl (Reglan) 10 mg IV ONCE PRN PRN Reason: Nausea/Vomiting Morphine Sulfate (Morphine) 2 mg IVP Q4H PRN PRN Reason: Pain, severe (8-10) Last Admin: 10/13/18 21:17 Dose: 2 mg Ondansetron HCl (Zofran Inj) 4 mg IVP ONCE PRN PRN Reason: Nausea/Vomiting Ondansetron HCl (Zofran Inj) 4 mg IVP ONCE PRN PRN Reason: Nausea/Vomiting Pantoprazole Sodium (Protonix Ec Tab) 40 mg PO 0600 [facility] Last Admin: 10/13/18 05:10 Dose: Not Given Sertraline HCl (Zoloft) 25 mg PO HS [facility] Last Admin: 10/13/18 21:18 Dose: 25 mg - Labs Labs: 10/13/18 06:10 10/13/18 06:10 PT 13.7 SECONDS (9.4-12.5) H 10/13/18 06:10 INR 1.21 10/13/18 06:10 APTT 29.9 Seconds (26.9-38.3) 10/13/18 06:10 Attending/Attestation - Attestation I have personally seen and examined this patient.: Yes I have fully participated in the care of the patient.: Yes I have reviewed all pertinent clinical information, including history, physical exam and plan: Yes Notes (Text): This is an addendum to GI progress report dictated by the GI Fellow. The patient was seen and examined earlier. Medical records, lab studies, imagings were reviewed. Last 24 hours events reviewed. Agreed with the above treatment plan as outlined in GI Fellow 's notes with the addition of the following 10/13/18 23:46
--- NOTE | 2018-10-13 15:37 | PCM.SURG1 ---
Surgeon's Initial Post Op Note - Surgeon's Notes Surgeon: John Nurse Staff [facility]: PGY4, [place] MS3 Type of Anesthesia: General Endo, Local Pre-Operative Diagnosis: Cholelithiasis, choledocolithiasis Operative Findings: see op note Post-Operative Diagnosis: Cholelithiasis, choledocolithiasis Operation Performed: Laparoscopic cholecystectomy Specimen/Specimens Removed: gallbladder Estimated Blood Loss: EBL {In ML}: 5 Blood Products Given: N/A Drains Used: No Drains Post-Op Condition: Good Date of Surgery/Procedure: 10/13/18 Time of Surgery/Procedure: 08:00
[2018-10-14] MEDS: Pantoprazole 40 mg EC Tab PO SCH (05:20)
[2018-10-14] MEDS: Morphine 2 mg/ml ISec IVP PRN (05:22)
[2018-10-14 06:41] LABS: BASO # 0.02 {null, K/mm3} (0.0-2.0); BASO % 0.2 % (0.0-3.0); EOS # 0.1 (0.0-0.7); EOS % 1.2 % (1.5-5.0); HEMOGLOBIN 11.4 g/dL (12.0-16.0); LYMPH # 3.3 (1.2-3.4); LYMPH % 32.1 % (22.0-35.0); MEAN CELL VOLUME 83.3 fl (80.0-105.0); MEAN CORPUSCULAR HEMOGLOBIN 27.1 pg (25.0-35.0); MEAN CORPUSCULAR HGB CONC 32.6 g/dl (31.0-37.0); MEAN PLATELET VOLUME 9.5 fl (7.0-11.0); MONO # 0.6 (0.1-0.6); RBC 4.2 {null, 10^6/uL} (3.5-6.1); WHITE BLOOD COUNT 10.2 {null, 10^3/uL} (4.5-11.0)
[2018-10-14 06:49] LABS: ALB/GLOB RATIO 1.2 (1.1-1.8); ALBUMIN 3.7 g/dL (3.0-4.8); ALT/SGPT 25 U/L (7-56); AST/SGOT 25 U/L (14-36); BLOOD UREA NITROGEN 6 mg/dL (7-21); CALCIUM 8.9 mg/dL (8.4-10.5); GFR NON-AFRICAN AMERICAN > 60
[2018-10-14 08:04] VITALS: BP 125/88; PULSE 77; RESP 18; O2SAT 95
--- NOTE | 2018-10-14 08:45 | CP.PCM.PN ---
Subjective - Date & Time of Evaluation Date of Evaluation: 10/14/18 Time of Evaluation: 08:45 - Subjective Subjective: Surgery: Dr. Lopez Pt seen and examined. Resting comfortably in bed. No complaints. Tolerating diet. Pain controlled. Objective - Vital Signs/Intake and Output Vital Signs (last 24 hours): Temp Pulse Resp BP Pulse Ox 98.1 F 77 18 125/88 95 10/14/18 08:04 10/14/18 08:04 10/14/18 08:04 10/14/18 08:04 10/14/18 08:04 Intake and Output: 10/14/18 10/14/18 06:59 18:59 Intake Total 360 Balance 360 - Medications Medications: Current Medications Acetaminophen (Tylenol 325mg Tab) 650 mg PO Q6H PRN PRN Reason: Fever >100.4 F Metoclopramide HCl (Reglan) 10 mg IV ONCE PRN PRN Reason: Nausea/Vomiting Ondansetron HCl (Zofran Inj) 4 mg IVP ONCE PRN PRN Reason: Nausea/Vomiting Ondansetron HCl (Zofran Inj) 4 mg IVP ONCE PRN PRN Reason: Nausea/Vomiting Pantoprazole Sodium (Protonix Ec Tab) 40 mg PO 0600 [facility] Last Admin: 10/14/18 05:20 Dose: 40 mg Sertraline HCl (Zoloft) 25 mg PO HS [facility] Last Admin: 10/13/18 21:18 Dose: 25 mg - Labs Labs: 10/14/18 05:00 10/14/18 05:00 PT 13.7 SECONDS (9.4-12.5) H 10/13/18 06:10 INR 1.21 10/13/18 06:10 APTT 29.9 Seconds (26.9-38.3) 10/13/18 06:10 - Constitutional Appears: Non-toxic, No Acute Distress - Head Exam Head Exam: ATRAUMATIC, NORMOCEPHALIC - Eye Exam Eye Exam: EOMI - ENT Exam ENT Exam: Mucous Membranes Moist - Neck Exam Neck Exam: Full ROM - Respiratory Exam Respiratory Exam: NORMAL BREATHING PATTERN. absent: Accessory Muscle Use, Respiratory Distress - GI/Abdominal Exam GI & Abdominal Exam: Soft, Tenderness (melvin-incisional ). absent: Distended, Firm, Guarding, Rigid, Rebound - Extremities Exam Extremities Exam: absent: Calf Tenderness, Pedal Edema - Neurological Exam Neurological Exam: Alert, Awake, Oriented x3 - Psychiatric Exam Psychiatric exam: Normal Affect, Normal Mood Assessment and Plan - Assessment and Plan (Free Text) Assessment: 32F w. cholelithiasis/choledocholithiasis, s/p lap angélica, POD#1 -Pt clear for D/C from surgical standpoint -advil/tylenol for pain -diet as tolerated -No lifting >15-20lbs for 4 weeks -f/u in office 1-2 weeks -d/w attending Yadiel PGY4
--- NOTE | 2018-10-14 10:16 | CP.PCM.DIS ---
<José Manuel Cantrell - Last Filed: 10/14/18 10:16> Provider - Provider Date of Admission: 10/10/18 03:26 Attending physician: Walt Rodriguez MD Primary care physician: Javier Leung MD Consults: 10/10/18 03:28 General Surgery Consult Stat Comment: Consulting Provider: Cedric Hutchinson Consulting Physician: Cedric Hutchinson Reason for Consult: gallstones 10/10/18 08:30 Consult [Physician Consult] Routine Comment: Consulting Provider: Mook Wiley V Consulting Physician: Mook Wiley V Reason for Consult: gallstones Time Spent in preparation of Discharge (in minutes): 45 Hospital Course - Lab Results Lab Results: Micro Results 10/10/18 09:15 Blood-Venous Blood Culture - Preliminary NO GROWTH AFTER 4 DAYS 10/10/18 09:50 Blood-Venous Blood Culture - Preliminary NO GROWTH AFTER 3 DAYS 10/11/18 04:10 Urine Random Urine Culture - Final No Growth (<1,000 CFU/ML) Most Recent Lab Values WBC 10.2 10^3/uL (4.5-11.0) D 10/14/18 05:00 RBC 4.20 10^6/uL (3.5-6.1) 10/14/18 05:00 Hgb 11.4 g/dL (12.0-16.0) L 10/14/18 05:00 Hct 35.0 % (36.0-48.0) L 10/14/18 05:00 MCV 83.3 fl (80.0-105.0) 10/14/18 05:00 MCH 27.1 pg (25.0-35.0) 10/14/18 05:00 MCHC 32.6 g/dl (31.0-37.0) 10/14/18 05:00 RDW 14.0 % (11.5-14.5) 10/14/18 05:00 Plt Count 302 10^3/uL (120.0-450.0) 10/14/18 05:00 MPV 9.5 fl (7.0-11.0) 10/14/18 05:00 Neut % (Auto) 60.5 % (50.0-68.0) 10/14/18 05:00 Lymph % (Auto) 32.1 % (22.0-35.0) 10/14/18 05:00 Stark % (Auto) 6.0 % (1.0-6.0) 10/14/18 05:00 Eos % (Auto) 1.2 % (1.5-5.0) L 10/14/18 05:00 Baso % (Auto) 0.2 % (0.0-3.0) 10/14/18 05:00 Lymph # (Auto) 3.3 (1.2-3.4) 10/14/18 05:00 Stark # (Auto) 0.6 (0.1-0.6) 10/14/18 05:00 Eos # (Auto) 0.1 (0.0-0.7) 10/14/18 05:00 Baso # (Auto) 0.02 K/mm3 (0.0-2.0) 10/14/18 05:00 Absolute Neuts (auto) 6.18 (1.4-6.5) 10/14/18 05:00 PT 13.7 SECONDS (9.4-12.5) H 10/13/18 06:10 INR 1.21 10/13/18 06:10 APTT 29.9 Seconds (26.9-38.3) 10/13/18 06:10 Sodium 138 mmol/L (132-148) 10/14/18 05:00 Potassium 4.0 mmol/L (3.6-5.0) 10/14/18 05:00 Chloride 105 mmol/L (98-107) 10/14/18 05:00 Carbon Dioxide 24 mmol/L (21-33) 10/14/18 05:00 Anion Gap 12 (10-20) 10/14/18 05:00 BUN 6 mg/dL (7-21) L 10/14/18 05:00 Creatinine 0.7 mg/dl (0.7-1.2) 10/14/18 05:00 Est GFR ( Amer) > 60 10/14/18 05:00 Est GFR (Non-Af Amer) > 60 10/14/18 05:00 Random Glucose 82 mg/dL (70-110) 10/14/18 05:00 Calcium 8.9 mg/dL (8.4-10.5) 10/14/18 05:00 Total Bilirubin 0.4 mg/dL (0.2-1.3) 10/14/18 05:00 GGT 47 U/L (8-78) 10/11/18 06:00 AST 25 U/L (14-36) 10/14/18 05:00 ALT 25 U/L (7-56) 10/14/18 05:00 Alkaline Phosphatase 98 U/L (38-126) 10/14/18 05:00 Troponin I < 0.01 ng/mL 10/09/18 23:40 Total Protein 6.9 g/dL (5.8-8.3) 10/14/18 05:00 Albumin 3.7 g/dL (3.0-4.8) 10/14/18 05:00 Globulin 3.2 gm/dL 10/14/18 05:00 Albumin/Globulin Ratio 1.2 (1.1-1.8) 10/14/18 05:00 Lipase 191 U/L (23-300) 10/09/18 23:40 Urine HCG, Qual Negative (NEGATIVE) 10/13/18 07:20 - Hospital Course Hospital Course: 32-year-old female with past medical history of sleeve bariatric surgery 3-4 years ago, GERD, and depression initially presented with severe abdominal pain accompanied with nausea and vomiting. In the ED basic lab work was performed. Patient had a abdominal ultrasound which showed cholelithiasis. Gastroenterology and surgery were consulted. Patient was admitted for monitored in med surgery floor. A HIDA scan was performed and showed no cholecystitis. MRCP was performed showed a stone in the common duct with no CBD dilation. Subsequent ERCP was performed stone and sludge was noted and removed via balloon extraction. The following day patient underwent a cholecystectomy with no complications. Today the patient states that she is feeling much better. Denies any abdominal pain nausea vomiting. Patient is able to tolerate a diet. Patient will be discharged with Augmentin for 5 days and was instructed to follow-up with surgery and gastroenterology within a week. 1. Abdominal pain likely secondary to cholelithiasis, choledocholithiasis with hx of bariatric surgery 2. Leukocytosis- resolved 3. GERD 4. Depression Discharge Exam - Head Exam Head Exam: ATRAUMATIC, NORMOCEPHALIC - Eye Exam Eye Exam: EOMI, PERRL - Respiratory Exam Respiratory Exam: Clear to PA & Lateral. absent: Rales, Rhonchi, Wheezes - Cardiovascular Exam Cardiovascular Exam: REGULAR RHYTHM, +S1, +S2 - GI/Abdominal Exam GI & Abdominal Exam: Normal Bowel Sounds, Soft. absent: Tenderness - Neurological Exam Neurological exam: Alert, CN II-XII Intact, Oriented x3 - Psychiatric Exam Psychiatric exam: Normal Mood - Skin Skin Exam: Dry, Warm Discharge Plan - Discharge Medications Prescriptions: Amoxicillin/Clavulanate [Augmentin 875 MG-125 MG] 1 tab PO BID #10 tab - Follow Up Plan Condition: IMPROVED Disposition: HOME/ ROUTINE Patient education suggested?: Yes Instructions: Cholecystectomy, Laparoscopic Surgery Additional Instructions: Follow-up with your PMD within 3 days Follow-up with surgery and gastroenterology within 1 week If your symptoms recur come back to the ED Take your medications as prescribed Complete Augmentin twice a day for 5 days Referrals: Javier Leung MD [Primary Care Provider] - Ady Lopez MD [Staff Provider] - Mook Wiley MD [Medical Doctor] - <Walt Rodriguez - Last Filed: 10/14/18 20:42> Provider - Provider Date of Admission: 10/10/18 03:26 Attending physician: Walt Rodriguez MD Primary care physician: Javier Leung MD Consults: 10/10/18 03:28 General Surgery Consult Stat Comment: Consulting Provider: Cedric Hutchinson Consulting Physician: Cedric Hutchinson Reason for Consult: gallstones 10/10/18 08:30 Consult [Physician Consult] Routine Comment: Consulting Provider: Mook Wiley V Consulting Physician: Mook Wiley V Reason for Consult: gallstones Hospital Course - Lab Results Lab Results: Micro Results 10/10/18 09:50 Blood-Venous Blood Culture - Preliminary NO GROWTH AFTER 4 DAYS 10/10/18 09:15 Blood-Venous Blood Culture - Preliminary NO GROWTH AFTER 4 DAYS 10/11/18 04:10 Urine Random Urine Culture - Final No Growth (<1,000 CFU/ML) Most Recent Lab Values WBC 10.2 10^3/uL (4.5-11.0) D 10/14/18 05:00 RBC 4.20 10^6/uL (3.5-6.1) 10/14/18 05:00 Hgb 11.4 g/dL (12.0-16.0) L 10/14/18 05:00 Hct 35.0 % (36.0-48.0) L 10/14/18 05:00 MCV 83.3 fl (80.0-105.0) 10/14/18 05:00 MCH 27.1 pg (25.0-35.0) 10/14/18 05:00 MCHC 32.6 g/dl (31.0-37.0) 10/14/18 05:00 RDW 14.0 % (11.5-14.5) 10/14/18 05:00 Plt Count 302 10^3/uL (120.0-450.0) 10/14/18 05:00 MPV 9.5 fl (7.0-11.0) 10/14/18 05:00 Neut % (Auto) 60.5 % (50.0-68.0) 10/14/18 05:00 Lymph % (Auto) 32.1 % (22.0-35.0) 10/14/18 05:00 Stark % (Auto) 6.0 % (1.0-6.0) 10/14/18 05:00 Eos % (Auto) 1.2 % (1.5-5.0) L 10/14/18 05:00 Baso % (Auto) 0.2 % (0.0-3.0) 10/14/18 05:00 Lymph # (Auto) 3.3 (1.2-3.4) 10/14/18 05:00 Stark # (Auto) 0.6 (0.1-0.6) 10/14/18 05:00 Eos # (Auto) 0.1 (0.0-0.7) 10/14/18 05:00 Baso # (Auto) 0.02 K/mm3 (0.0-2.0) 10/14/18 05:00 Absolute Neuts (auto) 6.18 (1.4-6.5) 10/14/18 05:00 PT 13.7 SECONDS (9.4-12.5) H 10/13/18 06:10 INR 1.21 10/13/18 06:10 APTT 29.9 Seconds (26.9-38.3) 10/13/18 06:10 Sodium 138 mmol/L (132-148) 10/14/18 05:00 Potassium 4.0 mmol/L (3.6-5.0) 10/14/18 05:00 Chloride 105 mmol/L (98-107) 10/14/18 05:00 Carbon Dioxide 24 mmol/L (21-33) 10/14/18 05:00 Anion Gap 12 (10-20) 10/14/18 05:00 BUN 6 mg/dL (7-21) L 10/14/18 05:00 Creatinine 0.7 mg/dl (0.7-1.2) 10/14/18 05:00 Est GFR ( Amer) > 60 10/14/18 05:00 Est GFR (Non-Af Amer) > 60 10/14/18 05:00 Random Glucose 82 mg/dL (70-110) 10/14/18 05:00 Calcium 8.9 mg/dL (8.4-10.5) 10/14/18 05:00 Total Bilirubin 0.4 mg/dL (0.2-1.3) 10/14/18 05:00 GGT 47 U/L (8-78) 10/11/18 06:00 AST 25 U/L (14-36) 10/14/18 05:00 ALT 25 U/L (7-56) 10/14/18 05:00 Alkaline Phosphatase 98 U/L (38-126) 10/14/18 05:00 Troponin I < 0.01 ng/mL 10/09/18 23:40 Total Protein 6.9 g/dL (5.8-8.3) 10/14/18 05:00 Albumin 3.7 g/dL (3.0-4.8) 10/14/18 05:00 Globulin 3.2 gm/dL 10/14/18 05:00 Albumin/Globulin Ratio 1.2 (1.1-1.8) 10/14/18 05:00 Lipase 191 U/L (23-300) 10/09/18 23:40 Urine HCG, Qual Negative (NEGATIVE) 10/13/18 07:20 - Hospital Course Hospital Course: Pt seen and examined by me. I have reviewed the note of the biomedical engineering professor and I agree with it. I have discussed the assessment and plan with the resident. I have reviewed the medications and the last labs. pt had cholecystectomy and did well. She was admitted with cholecystitis. She is able to eat and will be discharged home.
--- NOTE | 2018-10-15 01:51 | OP ---
PROCEDURE DATE: 10/13/2018 SURGEON: Ady Lopez MD ASSISTANTS: Renaldo Kohler DO, PGY-4 and MS [place] 3 TYPE OF ANESTHESIA: General endotracheal and local. PREOPERATIVE DIAGNOSES: Cholelithiasis and choledocholithiasis. POSTOPERATIVE DIAGNOSES: Cholelithiasis and choledocholithiasis. SPECIMEN REMOVED: Gallbladder. ESTIMATED BLOOD LOSS: 5 mL. DRAINS: None. COMPLICATIONS: None. DESCRIPTION OF PROCEDURE: The patient was placed on the operating table in the supine position. General anesthesia was induced. Time-out was completed verifying the correct patient, procedure, site, positioning and equipment prior to beginning this procedure. The abdomen was prepped and draped in the usual sterile fashion. An incision was made in the skin just above the umbilicus. The fascia was dissected down and elevated with Misa clamps and incised. Entry into the peritoneum was confirmed visually, and no bowel was noted in the vicinity of the incision. A 10-mm cannula was inserted under direct vision. The abdomen was then inflated with carbon dioxide to a pressure of total of 15 mmHg. The patient tolerated the insufflation well. The laparoscope was then inserted, and the abdomen was inspected. No injuries from the initial trocar placement were noted. Additional trocars were then inserted in the following locations: A 5-mm trocar in the subxiphoid area and two 5-mm trocars along the right costal margin. The table was then placed in reverse Trendelenburg position with the right side up. Filmy adhesions in the gallbladder and omentum were lysed. Dome of the gallbladder was grasped with atraumatic grasper and retracted over the dome of the liver. Infundibulum was then grasped with an atraumatic grasper and retracted towards the right lower quadrant. This maneuver was exposed Calot's triangle. The peritoneum overlying the gallbladder infundibulum was then incised. The cystic duct and cystic artery were identified and circumferentially dissected. Co-angiogram was attempted, but the co-angiogram catheter was unable to pass into the common duct and met resistance. The cystic duct was palpated for stones with a [place] grasper. The cystic duct and cystic artery were then doubly clipped and divided close to the gallbladder. Gallbladder was then dissected from its peritoneal attachment by electrocautery. Hemostasis was checked and the gallbladder and contained stones were removed using an endoscopic retrieval bag placed through the umbilical port. Gallbladder was passed off the table as a specimen. Gallbladder fossa was examined, and no bleeding was seen. The cystic artery stump was also evaluated as well as the cystic duct stump, and no leakage of bile of blood was seen. The laparoscope was then withdrawn. The abdomen insufflated and all trocars were removed. The abdomen was allowed to collapse. The fascia of the 10-mm trocar site at the umbilicus was closed with a simple 0 Vicryl suture. The skin was closed with subcuticular sutures of 4-0 Monocryl, and skin glue was applied. The patient tolerated the procedure well and was taken to the PACU in stable condition. At the end of the procedure, all nursing counts were correct. Renaldo Kohler DO Ady Lopez MD
== END 2018-10-14 12:49 | disposition home or self-care (01) | DRG 419 ==
LOC: ED 22:10 → ERH 10-10 03:26 → 3RNO 10-10 05:08
PROVIDERS: ADMIT Internal Medicine Nephrology; ATTEND Internal Medicine Nephrology
PROC: 0FC98ZZ Extirpation of Matter from Common Bile Duct, Via Natural or Artificial Opening Endoscopic (ICD-10-PCS; 2018-10-12 09:30)
PROC: 0DJ08ZZ Inspection of Upper Intestinal Tract, Via Natural or Artificial Opening Endoscopic (ICD-10-PCS; 2018-10-12 09:30)
PROC: BF140ZZ Fluoroscopy of Gallbladder, Bile Ducts and Pancreatic Ducts using High Osmolar Contrast (ICD-10-PCS; 2018-10-12 09:30)
PROC: 0FT44ZZ Resection of Gallbladder, Percutaneous Endoscopic Approach (ICD-10-PCS; principal; 2018-10-13 07:50)
DX: K80.70 Calculus of gallbladder and bile duct without cholecystitis without obstruction (principal); K76.0 Fatty (change of) liver, not elsewhere classified; K21.9 Gastro-esophageal reflux disease without esophagitis; F32.9 Major depressive disorder, single episode, unspecified; Z98.84 Bariatric surgery status; Z87.01 Personal history of pneumonia (recurrent)